=== PATIENT | female | born 1945 | race Caucasian/White ===

== ENCOUNTER 2020-04-11 15:53 | Outpatient (CLI) | payer MEDICARE, OTHER, SELFPAY ==
--- NOTE | ~2020-04-11 | CT_ITS ---
EXAMINATION: CTA chest PE protocol DATE: 04/11/2020 17:27 INDICATION: Shortness of breath TECHNIQUE: Computed tomography (CT) pulmonary angiogram of the chest was performed with 100 mL Omnipa que-350 intravenous contrast. Additional 3D reconstructions utilizing coronal maximum intensity proje ction (MIP) were performed. The dose-length product was 328.41 mGy-cm. COMPARISON: None FINDINGS: Excellent contrast opacification of the pulmonary arteries. There is moderate streak artifact from de nse contrast in the superior vena cava and right atrium. Severe motion artifact which significantly d ecreases sensitivity in the left mid and lower lung zones. Less severe motion artifact scattered thro ughout the remainder of the lungs which only minimally decreases sensitivity. No definite pulmonary e mbolism. Mild elevation of the right hemidiaphragm with mild right basilar atelectasis. Discoid atele ctasis in the left upper lobe and lingula. Mosaic attenuation with groundglass opacities in the depen dent aspect of the lower lobes which could represent atelectasis or mild pulmonary edema. Calcified r ight lower lobe nodule along with calcified right hilar and mediastinal lymph nodes consistent with o ld granulomatous disease. 4 mm left upper lobe pulmonary nodule with suggestion of a tiny central pun ctate calcification also likely sequela of old granulomatous disease. Mild cardiomegaly. No pericardi al effusion. Coronary artery disease and changes of prior coronary artery bypass grafting. Aneurysmal ascending thoracic aorta measuring up to 4.0 x 4.2 cm. No dissection. Enlargement of the central pul monary arteries consistent with pulmonary arterial hypertension. Moderate-sized sliding-type hiatal h ernia. Cholelithiasis without significant gallbladder wall thickening or pericholecystic inflammatory change to suggest acute cholecystitis. Upper thoracic levocurvature with moderate spondylosis. IMPRESSION: 1. No pulmonary embolism. Sensitivity significantly decreased in the segmental and subsegmental pulmo nary arteries of the left mid and lower lung zones due to prominent motion artifact. 2. Groundglass opacities in the bilateral lower lobes with mosaic attenuation which could represent a telectasis or mild pulmonary edema. 3. Cardiomegaly. 4. Mildly aneurysmal ascending thoracic aorta measuring up to 4.2 cm maximal diameter. 5. Enlargement of the central pulmonary arteries consistent with pulmonary arterial hypertension. 6. Moderate-sized sliding-type hiatal hernia. 7. Cholelithiasis. Reviewed, dictated and finalized at location A. MASTERS MANAGER IMPRESSION: 1. No pulmonary embolism. Sensitivity significantly decreased in the segmental and subsegmental pulmonary arteries of the left mid and lower lung zones due to prominent motion artifact. 2. Groundglass opacities in the bilateral lower lobes with mosaic attenuation w hich could represent atelectasis or mild pulmonary edema. 3. Cardiomegaly. 4. Mildly aneurysmal ascending thoracic aorta measuring up to 4.2 cm maximal di ameter. 5. Enlargement of the central pulmonary arteries consistent with pulmonary genna rial hypertension. 6. Moderate-sized sliding-type hiatal hernia. 7. Cholelithiasis.
--- NOTE | ~2020-04-11 | XR_ITS ---
EXAMINATION: XR chest 2V DATE: 04/11/2020 16:17 INDICATION: Chest pain and shortness of breath. TECHNIQUE: Frontal and lateral views of the chest were obtained. COMPARISON: Chest 2 views 07/09/17 FINDINGS: There is mild atelectasis at the lung bases. No pleural effusion or pneumothorax. The heart size is normal. Median sternotomy wires and mediastinal surgical clips are seen, likely from prior c oronary artery bypass grafting. There is a moderate-sized hiatal hernia. IMPRESSION: 1. Mild atelectasis at the lung bases. 2. Moderate-sized hiatal hernia. Reviewed, dictated and finalized at location A. KHOLDER
[2020-04-11 16:10] LABS: Basophils Absolute Auto 0.03 K/mm3 (0.00-0.10); Basophils Percent Auto 0.4 % (0.0-1.0); Eosinophils Absolute Auto 0.04 K/mm3 (0.02-0.50); Eosinophils Percent Auto 0.5 % (1.0-6.0); Hemoglobin 13.7 g/dL (11.7-13.8); Immature Granulocyte Absolute 0.01 K/mm3 (0.00-0.00); Immature Granulocyte Percent A 0.1 % (0.0-0.0); Lymphocytes Absolute Auto 1.39 K/mm3 (1.10-4.50); Lymphocytes Percent Auto 18.4 % (18.0-42.0); Mean Corpuscular HGB Conc 34.3 g/dL (32.0-36.0); Mean Corpuscular Hemoglobin 32.5 pg (27.0-31.0); Mean Platelet Volume 9.6 fl (9.2-11.8); Monocytes Absolute Auto 0.66 K/mm3 (0.10-0.90); Monocytes Percent Auto 8.8 % (2.0-11.0); Neutrophils Absolute Auto 5.4 K/mm3 (1.7-7.2); Neutrophils Percent Auto 71.8 % (50.0-70.0); Platelet Count Result 295 K/mm3 (150-420); Red Blood Count 4.21 M/mm3 (4.20-5.40); Red Cell Distribution Width 12.1 % (11.6-14.4); White Blood Count 7.5 K/mm3 (4.8-10.8)
[2020-04-11 16:28] LABS: D Dimer 0.53 mg/L (0.19-0.50)
[2020-04-11 16:30] LABS: BNP 82.7 pg/mL (0-100)
[2020-04-11 16:36] LABS: Alanine Aminotransferase 31 U/L (14-59); Albumin Level 4.2 g/dL (3.4-5.0); Alkaline Phosphatase 90 U/L (46-116); Anion Gap 7 mmol/L (8-16); Aspartate Amino Transferase 23 U/L (15-37); Bilirubin,Total 1.2 mg/dL (0.00-1.00); Blood Urea Nitrogen 29 mg/dL (7-18); Carbon Dioxide 30 mmol/L (21-32); Chloride 100 mmol/L (98-108); Creatine Kinase 88 U/L (26-192); Estimated Glomerular Filt Rate > 60; Glucose 133 mg/dL (70-99); Osmolality Calculated 291 mOsm/kg (285-295); Potassium 3.9 mmol/L (3.5-5.1); Sodium 137 mmol/L (136-145); Total Protein 8.3 g/dL (6.4-8.2); Troponin I 16.7 ng/L (0.00-60.4)
== END 2020-04-11 15:54 | disposition home or self-care (01) ==
PROVIDERS: PCP Internal Medicine; Visit Provider Nurse Practitioner Family
DX: R07.9 Chest pain, unspecified (principal); R06.02 Shortness of breath; I50.9 Heart failure, unspecified
CPT/HCPCS: 36415; 71046; 71275; 80053; 82550; 82553; 83880; 84484; 85025; 85380; Q9967

== ENCOUNTER 2020-04-19 11:54 | Outpatient (CLI) | payer MEDICARE, OTHER, SELFPAY ==
--- NOTE | 2020-04-19 11:59 | ECHO_ITS ---
Patient Info Name: Nicky Kuo Age: 75 years : 1945 Gender: Female Ht: 66 in Wt: 189 lbs BSA: 2.02 m2 HR: 68 bpm BP: 133 / 72 mmHg Heart Rhythm: Sinus Rhythm Technical Quality: Fair Exam Date: 04/19/2020 12:52 PM Exam Location: [facility] Patient Status: Outpatient Admit Date: 04/19/2020 Staff Ordering Physician: Robinson Foster DO Food Service Counter Clerk: Stefani Haque RDCS Attending Provider: Robinson Foster DO Referring Physician: Cristian HOGAN; Exam Type: CA echo dop color flow w con Study Info Indications R07.9 - Chest pain, unspecified Complete two-dimensional, color flow and Doppler transthoracic echocardiogram is performed with contrast to opacify the left ventricle and to improve the deliniation of the left ventricle endocardial borders. Strain analysis performed. History/Risk Factors Hypertension: No Dyslipidemia: Yes Coronary Artery Disease (CAD) Yes Diabetes Mellitus: No Frailty Scale (CSHA): 4: Vulnerable Summary 1. Left ventricular chamber dimension is normal. 2. Definity contrast administered improved wall motion interpretation. 3. Left ventricular systolic function is normal, estimated at 55-60%. 4. There is mildly increased left ventricular wall thickness. 5. Left ventricular septal wall motion is abnormal with septal motion related to bundle branch block. 6. The left ventricular diastolic function is grade I diastolic dysfunction. 7. E/e' 10 is mildly elevated. 8. Global longitudinal strain is abnormal at -13.2%. 9. Left atrial chamber dimension is mildly enlarged. 10. There is trace aortic valve regurgitation. 11. The mitral valve has mildly calcified annulus. 12. There is trace mitral valve regurgitation. 13. There is mild tricuspid valve regurgitation. 14. No pulmonary hypertension, estimated pulmonary arterial systolic pressure is 26 mmHg. 15. Small atheroma in posterior aortic root. Left Ventricle E/e' 10 is mildly elevated. Global longitudinal strain is abnormal at -13.2%. Definity contrast administered improved wall motion interpretation. Left ventricular chamber dimension is normal. Left ventricular systolic function is normal, estimated at 55-60%. There is mildly increased left ventricular wall thickness. Left ventricular septal wall motion is abnormal with septal motion related to bundle branch block. The left ventricular diastolic function is grade I diastolic dysfunction. Right Ventricle Right ventricular chamber dimension is normal. Right ventricular systolic function is normal. Left Atria Left atrial chamber dimension is mildly enlarged. Right Atria Right atrial chamber dimension is normal. Aortic Valve The aortic valve is trileaflet. There is no aortic valve stenosis. There is trace aortic valve regurgitation. Pulmonic Valve There is no pulmonic regurgitation. Mitral Valve The mitral valve has mildly calcified annulus. There is no mitral valve stenosis. There is trace mitral valve regurgitation. Tricuspid Valve There is mild tricuspid valve regurgitation. No pulmonary hypertension, estimated pulmonary arterial systolic pressure is 26 mmHg. Pericardium/Pleural There is no pericardial effusion. Inferior Vena Cava Normal inferior vena cava with >50% collapse upon inspiration consistent with normal right atrial pressure, 5 mmHg. Aorta Small atheroma in posterior aortic root. The aortic root size at the sinus of Valsalva is normal. Left Ventricular
== END 2020-04-19 11:55 | disposition home or self-care (01) ==
LOC: CHSIMG 11:55
PROVIDERS: PCP Internal Medicine; Visit Provider Internal Medicine Cardiovascular Disease
DX: R07.9 Chest pain, unspecified (principal); R06.00 Dyspnea, unspecified
CPT/HCPCS: C8929

== ENCOUNTER 2020-04-22 10:17 | Outpatient (CLI) | payer MEDICARE, OTHER, SELFPAY ==
--- NOTE | 2020-04-22 10:23 | EST_ITS ---
Patient Info Name: Nicky Kuo Age: 75 years : 1945 Gender: Female Ht: 65 in Wt: 186 lbs BSA: 2.00 m2 Exam Date: 04/22/2020 12:10 PM Exam Location: [facility] Patient Status: Outpatient Admit Date: 04/22/2020 Staff Ordering Physician: Robinson Foster DO Attending Provider: Robinson Foster DO Exam Type: CA stress lee w NM History/Risk Factors Hypertension: No Dyslipidemia: Yes Coronary Artery Disease (CAD) Yes Diabetes Mellitus: No Frailty Scale (CSHA): 4: Vulnerable Summary 1. 1. Inconclusive lexiscan stress test for ischemic ST changes by ECG criteria due to baseline LBBB. 2. 2. Stable hemodynamics throughout the test. 3. 3. Nuclear scan to follow and will be reported separately. Please correlate with it. 4. 4. Patient informed of the above results. Protocol: LEXISCAN Stress ECG Details Stage: REST Duration (min): 1 min : 26 sec HR (bpm): 66 SBP (mmHg): 114 DBP (mmHg): 75 Stage: REST Duration (min): 2 min : 0 sec HR (bpm): 67 SBP (mmHg): 114 DBP (mmHg): 75 Stage: REST Duration (min): 6 min : 27 sec HR (bpm): 71 SBP (mmHg): 114 DBP (mmHg): 75 Stage: REST Duration (min): 30 min : 12 sec HR (bpm): 68 SBP (mmHg): 114 DBP (mmHg): 75 Stage: STAGE 1 Duration (min): 0 min : 10 sec HR (bpm): 69 SBP (mmHg): 114 DBP (mmHg): 75 Stage: RECOVERY Duration (min): 0 min : 50 sec HR (bpm): 85 SBP (mmHg): 114 DBP (mmHg): 75 Stage: RECOVERY Duration (min): 1 min : 50 sec HR (bpm): 96 SBP (mmHg): 138 DBP (mmHg): 79 Stage: RECOVERY Duration (min): 2 min : 50 sec HR (bpm): 93 SBP (mmHg): 143 DBP (mmHg): 77 Stage: RECOVERY Duration (min): 3 min : 50 sec HR (bpm): 86 SBP (mmHg): 134 DBP (mmHg): 76 Stage: RECOVERY Duration (min): 4 min : 50 sec HR (bpm): 88 SBP (mmHg): 130 DBP (mmHg): 75 Stage: RECOVERY Duration (min): 5 min : 50 sec HR (bpm): 83 SBP (mmHg): 129 DBP (mmHg): 74 Stage: RECOVERY Duration (min): 6 min : 3 sec HR (bpm): 85 SBP (mmHg): 129 DBP (mmHg): 74 Rest HR: 68 bpm Peak HR: 96 bpm Rest Sys BP: 114 mmHg Peak Sys BP: 143 mmHg Max Pred HR: 146 bpm % Max Pred HR: 66 % Target HR: 124 bpm Max RPP: 13,728 bpm*mmHg Termination Reason: Completed protocol Cardiac Symptoms: None Total Time: 0 min : 10 sec Rest Jasso BP: 75 mmHg Peak Jasso BP: 77 mmHg Total Dose: 0.4 mg Resting ECG Sinus rhythm with LBBB. Stress ECG No ST changes. Arrhythmias None. Report Signatures
== END 2020-04-22 10:18 | disposition home or self-care (01) ==
LOC: CHSIMG 10:19
PROVIDERS: PCP Internal Medicine; Visit Provider Internal Medicine Cardiovascular Disease
DX: R06.00 Dyspnea, unspecified (principal); R07.9 Chest pain, unspecified
CPT/HCPCS: 78452; 93017; A9502; J2785

== ENCOUNTER 2020-04-29 08:53 | Outpatient (CLI) | payer MEDICARE, OTHER, SELFPAY ==
--- NOTE | ~2020-04-29 | CT_ITS ---
EXAMINATION: CT chest high resolution wo wv EXAM DATE: 04/29/2020 10:25 INDICATION: Pulmonary infiltrates atherosclerotic pulmonary infiltrates atherosclerotic, HTN, chest s urg 3yrs ago. TECHNIQUE: Spiral CT of the chest without contrast. HRCT. Axial, coronal and sagittal images were re viewed. Coronal maximum intensity pixel images of chest reviewed. The dose-length product (DLP) for this examination was 167.74 mGy-cm. The exposure was tailored according to patient size (auto mA ex posure control), and iterative reconstruction (ASIR) was used as additional dose reduction technique. Comparison is made to prior examination from 04/11/2020. FINDINGS: No evidence of chronic internal soft tissue lung disease. There is left basilar subsegment al atelectasis. No confluent consolidation. The ascending aorta measures 4.4 cm. The main, central pu lmonary arteries are dilated which can indicate elevated pulmonary arterial pressure, pulmonary arter ial hypertension. There are no pleural or pericardial effusions. Tracheobronchial tree is patent. There is no mediastinal, hilar or axillary lymphadenopathy. There is no pneumothorax. There is cardiomegaly. There are sternotomy wires, and cardiac/coronary surgical changes. Correlate with prio r history. There is moderate sliding gastroesophageal hiatal hernia. Upper abdomen is unremarkable. There is thoracic spondylosis without osteoblastic or osteolytic lesions identified. Mild thoraci c dextroscoliosis. IMPRESSION: 1. Left basilar subsegmental atelectasis. 2. Mild ascending aortic aneurysm. 3. Pulmonary arterial hypertension. 4. Cardiomegaly. 5. Moderate hiatal hernia. Reviewed, dictated and finalized at location B. DESIGN ENGINEER
== END 2020-04-29 08:54 | disposition home or self-care (01) ==
PROVIDERS: PCP Internal Medicine; Visit Provider Internal Medicine
DX: I25.10 Atherosclerotic heart disease of native coronary artery without angina pectoris (principal); R91.8 Other nonspecific abnormal finding of lung field; I10 Essential (primary) hypertension
CPT/HCPCS: 71250; 94060; 94726; 94729

== ENCOUNTER 2021-11-17 12:07 | Outpatient (CLI) | payer MEDICARE, OTHER, SELFPAY ==
--- NOTE | ~2021-11-17 | CT_ITS ---
EXAMINATION: CT diagnostic chest wo con DATE: 11/17/2021 12:26 INDICATION: Aortic aneurysm, dyspnea on intact and TECHNIQUE: Computed tomography (CT) of the chest was performed without intravenous contrast. The dose -length product (DLP) was 139.78 mGy-cm. Automated exposure control and iterative reconstruction tech Talyst were employed. COMPARISON: 04/29/2020 FINDINGS: There is a 4.2 x 3.9 cm fusiform aneurysm of the thoracic aorta measured at the level of th e main pulmonary artery. There is a chronic 5 mm nodule of the left upper lobe. There is mild atelect asis. No pleural effusion or pneumothorax. Cardiomegaly is noted. There are changes of coronary arter y bypass grafting. There is a moderate-sized sliding hiatal hernia. No pathologically enlarged thorac ic lymph nodes are identified. A stone is present in the nondistended gallbladder. Punctate calcifica tions in an otherwise normal spleen likely represent healed granulomatous disease. There is mild thor acic spondylosis. IMPRESSION: 1. Stable fusiform aneurysm of the ascending aorta. 2. Cardiomegaly. Reviewed, dictated and finalized at location B.
== END 2021-11-17 12:08 | disposition home or self-care (01) ==
PROVIDERS: PCP Internal Medicine; Visit Provider Internal Medicine Cardiovascular Disease
DX: I71.9 Aortic aneurysm of unspecified site, without rupture (principal); R06.00 Dyspnea, unspecified
CPT/HCPCS: 71250

== ENCOUNTER 2021-12-25 08:34 | Outpatient (CLI) | payer MEDICARE, OTHER, SELFPAY ==
[2021-12-25 09:20] LABS: Alanine Aminotransferase 19 U/L (14-59); Alkaline Phosphatase 109 U/L (46-116); Anion Gap 7 mmol/L (8-16); Aspartate Amino Transferase 19 U/L (15-37); Bilirubin,Total 1.5 mg/dL (0.00-1.00); Blood Urea Nitrogen 23 mg/dL (7-18); Calcium 9.5 mg/dL (8.5-10.1); Carbon Dioxide 31 mmol/L (21-32); Chloride 99 mmol/L (98-108); Cholesterol 167 mg/dL (0-200); Estimated Glomerular Filt Rate 55; Glucose 137 mg/dL (70-99); HDL Direct 47 mg/dL (40-60); LDL Cholesterol Calculated 100 mg/dL (<130); Magnesium 1.8 mg/dL (1.8-2.4); Osmolality Calculated 289 mOsm/kg (285-295); Potassium 3.7 mmol/L (3.5-5.1); Sodium 137 mmol/L (136-145); Triglycerides 99 mg/dL (0-150)
[2021-12-25 09:28] LABS: Thyroid Stimulating Hormone Reflex 2.67 u/IU/mL (0.36-3.74)
== END 2021-12-25 08:35 | disposition home or self-care (01) ==
LOC: CHSLAB 08:37
PROVIDERS: PCP Internal Medicine; Visit Provider Internal Medicine Cardiovascular Disease
DX: E78.5 Hyperlipidemia, unspecified (principal)
CPT/HCPCS: 36415; 80053; 80061; 83735; 84443

== ENCOUNTER 2022-06-08 12:08 | Outpatient (CLI) | payer MEDICARE, OTHER, SELFPAY ==
--- NOTE | ~2022-06-08 | DEXA_ITS ---
Bone Density Report Name: EL BUENROSTRO Age: 77 Sex: Female Ethnicity: White Date of : 1945 Indication: postmenopausal; screening for osteoporosis; asthma or emphysema; hysterectomy; Referring Provider: Apolinar Rosales Study: Bone densitometry was performed. Exam Date: June 08, 2022 Accession number: [id number] Bone Density: Region BMD T-score Z-score Classification AP Spine(L2, L3, L4) 1.157 0.7 3.3 Normal Femoral Neck (Left) 0.749 -0.9 1.2 Normal Total Hip (Left) 0.766 -1.4 0.4 Osteopenia Femoral Neck (Right) 0.806 -0.4 1.8 Normal Total Hip (Right) 0.852 -0.7 1.1 Normal Femoral Neck Mean 0.778 -0.6 1.5 Normal Total Hip Mean 0.809 -1.1 0.8 Osteopenia World Health Organization criteria for BMD impression classify patients as: Normal (T-score at or above -1.0), Osteopenia (T-score between -1.0 and -2.5), or Osteoporosis (T-score at or below -2.5). 10-year Fracture Risk(1): Major Osteoporotic Fracture 9.7% Hip Fracture 1.5% Reported Risk Factors: [place] (), Neck BMD=0.749, BMI=30.6 (1) FRAX(R) Version 3.08. Fracture probability calculated for an untreated patient. Fracture probability may be lower if the patient has received treatment. Clinical Information Provided by Patient: Has used the following medications: Vitamin D, Calcium Has the following medical conditions: Asthma or Emphysema, Hysterectomy Patient maximum height was 58 Menopause Age: 51 Drinks caffeinated beverages Onset of menses at age 13 Number of children 1 Impression: The patient has low bone mass, based on the Left Total Hip T-score. Discussion: BONE DENSITY IS LOW AT ONE OR MORE SKELETAL SITES. This patient's lowest T-score is low at one or more skeletal sites. It meets the World Health Organization's (WHO) criteria for ?low bone mass? (T-score between -1.0 and -2.5). The patient's 10-year risk of fracture as calculated by FRAX is less than the threshold where pharmacological therapy is recommended by the National Osteoporosis Foundation (NOF). However, all treatment decisions require clinical judgment and consideration of individual patient factors, including patient preferences, comorbidities, previous drug use, risk factors not captured in the FRAX model (e.g., frailty, falls, vitamin D deficiency, increased bone turnover, interval significant decline in bone density) and possible under or overestimation of fracture risk by FRAX. The patient should follow a healthful lifestyle (good nutrition with adequate calcium and vitamin D, and appropriate weight-bearing exercise). Follow-Up: Consider repeating this study in 2 to 3 years to reassess this patient's status, or sooner if there is some new clinical indication. Reported by: Dr. Aron Villeda on 06/08/2022 1:04:00
--- NOTE | ~2022-06-08 | MM_ITS ---
EXAMINATION: MM screening norma BI w hesham HISTORY: Screening mammogram TECHNIQUE: Craniocaudal and mediolateral oblique 3-D tomosynthesis images were obtained and synthetic 2-D images were generated. CAD analysis was submitted and interpreted. COMPARISON: No prior mammogram is available for comparison at this institution. BREAST PARENCHYMAL COMPOSITION: There are scattered areas of fibroglandular density. FINDINGS: There is no evidence of suspicious mass, calcification, or architectural distortion to sugg est malignancy in either breast. There has been no suspicious interval change. IMPRESSION: 1. No mammographic evidence of malignancy. 2. Recommend routine screening mammography in one year. BI-RADS Category 1: Negative Reviewed, dictated and finalized at location A.
== END 2022-06-08 12:09 | disposition home or self-care (01) ==
LOC: CHSIMG 12:09
PROVIDERS: PCP Internal Medicine; Visit Provider Internal Medicine
DX: Z12.31 Encounter for screening mammogram for malignant neoplasm of breast (principal); Z78.0 Asymptomatic menopausal state; M85.89 Other specified disorders of bone density and structure, multiple sites
CPT/HCPCS: 77063; 77067; 77080

== ENCOUNTER 2022-06-25 09:15 | Outpatient (CLI) | payer MEDICARE, OTHER, SELFPAY ==
--- NOTE | ~2022-06-25 | US_ITS ---
EXAMINATION: US carotid duplex BI DATE: 06/25/2022 10:20 INDICATION: Occlusion and stenosis of unspecified carotid artery. TECHNIQUE: Grayscale, color Doppler, and pulsed Doppler images of the cervical carotid arteries were obtained. The degree of vessel stenosis is placed in one of the following categories: normal, <50%, 5 0-69%, >=70% but less than near-occlusion, near-occlusion, or total occlusion. Note that percent sten osis relative to normal distal artery lumen diameter is indirectly measured from velocity measurement s as described by Richard, et al. Radiology 2003; 229:340-346. COMPARISON: Ultrasound 03/03/17 FINDINGS: RIGHT: The right common carotid artery (CCA) peak systolic velocity (PSV) is 87 cm/s. The right internal car otid artery (ICA) PSV is 55 cm/s. The right ICA end-diastolic velocity (EDV) is 14 cm/s. The right IC A/CCA PSV ratio is <1. Grayscale and color Doppler images yield an estimate of <50% diameter reductio n from plaque in the ICA. There is antegrade flow in the right vertebral artery. LEFT: The left CCA PSV is 55 cm/s. The left ICA PSV is 60 cm/s. The left ICA EDV is 28 cm/s. The left ICA/C CA PSV ratio is 1.1. Grayscale and color Doppler images yield an estimate of <50% diameter reduction from plaque in the ICA. There is antegrade flow in the left vertebral artery. IMPRESSION: 1. <50% stenosis in the right internal carotid artery. 2. <50% stenosis in the left internal carotid artery. Reviewed, dictated and finalized at location A.
== END 2022-06-25 09:16 | disposition home or self-care (01) ==
LOC: CHSIMG 09:16
PROVIDERS: PCP Internal Medicine; Visit Provider Internal Medicine Cardiovascular Disease
DX: I65.23 Occlusion and stenosis of bilateral carotid arteries (principal)
CPT/HCPCS: 93880

== ENCOUNTER 2023-04-16 15:43 | Outpatient (CLI) | payer MEDICARE, OTHER, SELFPAY ==
--- NOTE | ~2023-04-16 | XR_ITS ---
XR abdomen obstructive series DATE: 04/16/2023 16:48 INDICATION: Generalized back pain. Nausea, vomiting, constipation. TECHNIQUE: Supine and upright AP views COMPARISON: None FINDINGS: There is an approximately 3 cm concentrically calcified probable gallstone overlying the ri ght upper quadrant of the abdomen. Surgical clips overlie the left upper quadrant. Sternal wire sutures and postoperative change from coronary artery bypass graft surgery. There is rotatory levoscoliosis and multilevel severe degenerative disc disease of the lumbar spine. No bowel obstruction or intraperitoneal free air is detected. No abdominal visceromegaly is noted. Osteopenia. 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 Reviewed, dictated and finalized at location B. L CASINO FLOORPERSON IMPRESSION: Cholelithiasis Rotatory levoscoliosis and multilevel severe degenerative disc disease of the l umbar spine Osteopenia Status post CABG Postoperative change, left upper quadrant
[2023-04-16 16:13] LABS: Basophils Absolute Auto 0.02 K/mm3 (0.00-0.10); Basophils Percent Auto 0.2 % (0.0-1.0); Hematocrit 40.2 % (35.0-42.0); Hemoglobin 13.5 g/dL (11.7-13.8); Immature Granulocyte Absolute 0.05 K/mm3 (0.00-0.00); Immature Granulocyte Percent A 0.4 % (0.0-0.0); Lymphocytes Absolute Auto 0.16 K/mm3 (1.10-4.50); Lymphocytes Percent Auto 1.2 % (18.0-42.0); Mean Corpuscular HGB Conc 33.6 g/dL (32.0-36.0); Mean Corpuscular Volume 92.2 fL (78.0-102.0); Mean Platelet Volume 9.7 fl (9.2-11.8); Monocytes Absolute Auto 0.51 K/mm3 (0.10-0.90); Neutrophils Absolute Auto 12.1 K/mm3 (1.7-7.2); Neutrophils Percent Auto 94.2 % (50.0-70.0); Platelet Count Result 246 K/mm3 (150-420); Red Blood Count 4.36 M/mm3 (4.20-5.40); White Blood Count 12.9 K/mm3 (4.8-10.8)
[2023-04-16 16:52] LABS: Alanine Aminotransferase 27 U/L (14-59); Albumin Level 3.4 g/dL (3.4-5.0); Alkaline Phosphatase 105 U/L (46-116); Amylase 22 U/L (25-115); Anion Gap 16 mmol/L (8-16); Aspartate Amino Transferase 25 U/L (15-37); Bilirubin,Total 1.8 mg/dL (0.00-1.00); Blood Urea Nitrogen 29 mg/dL (7-18); CRP 5.1 mg/dL (0.0-0.9); Calcium 8.7 mg/dL (8.5-10.1); Carbon Dioxide 24 mmol/L (21-32); Chloride 95 mmol/L (98-108); Creatine Kinase 38 U/L (26-192); Creatine Kinase MB < 0.50 ng/mL (0.00-5.00); Estimated Glomerular Filt Rate 36; Glucose 233 mg/dL (70-99); Lipase 25 U/L (16-77); Osmolality Calculated 292 mOsm/kg (285-295); Potassium 3.2 mmol/L (3.5-5.1); Sodium 135 mmol/L (136-145); Troponin I 12.8 ng/L (0.00-60.4)
== END 2023-04-16 15:44 | disposition home or self-care (01) ==
LOC: CHSLAB 15:47
PROVIDERS: PCP Internal Medicine; Visit Provider Internal Medicine
DX: M54.50 Low back pain, unspecified (principal); R11.2 Nausea with vomiting, unspecified; K80.20 Calculus of gallbladder without cholecystitis without obstruction; M41.86 Other forms of scoliosis, lumbar region; M51.36 Other intervertebral disc degeneration, lumbar region; M85.88 Other specified disorders of bone density and structure, other site; Z95.1 Presence of aortocoronary bypass graft; Z98.890 Other specified postprocedural states
CPT/HCPCS: 36415; 74019; 80053; 82150; 82550; 82553; 83690; 84484; 85025; 86140

== ENCOUNTER 2023-04-16 22:04 | Inpatient (IN) | payer MEDICARE, OTHER, SELFPAY ==
[2023-04-16] VITALS (18 sets, daily range): BP systolic 57–77; BP diastolic 39–53; PULSE 73–119; RESP 18–34; TEMP 36.8; O2SAT 90–95
--- NOTE | ~2023-04-16 | XR_ITS ---
Portable chest x-ray Comparison: 04/18/2023 Clinical History: Dyspnea Findings: Suspected minimal pleural effusions with bibasilar pulmonary edema/atelectatic change. Rig ht IJ line is unchanged. Cardiomediastinal silhouette is stable. Bones and soft tissues are unremark able. Impression: Probable mild bibasilar pulmonary edema/atelectasis and minimal pleural effusions. Stable right IJ line. Reviewed, dictated and finalized at location . D LABORER Impression: Probable mild bibasilar pulmonary edema/atelectasis and minimal pleural effusio ns. Stable right IJ line.
--- NOTE | ~2023-04-16 | CT_ITS ---
EXAMINATION: CT abdomen pelvis wo con DATE: 04/19/2023 14:29 INDICATION: Pyelitis. Stent placement. TECHNIQUE: Computed tomography (CT) of the abdomen and pelvis was performed without intravenous contr ast. The dose-length product was 484.78 mGy-cm. Automated exposure control and iterative reconstructi on technique were employed. COMPARISON: CT dated 04/16/2023. FINDINGS: There is a right internal ureteral stent. There is dilated right renal pelvis containing de bris and stones. Cannot exclude transitional cell carcinoma or blood clot. Gallstones with dilated ga llbladder. Cannot exclude cholecystitis. Small pleural effusions. There is bilateral lower lobe conso lidation. Hiatal hernia. There is ascites. There is atherosclerosis of the aorta without aneurysm. There are calcified granulomas of the spleen. There is a right internal ureteral stent present which is new compared with prior CT. Severe lumbar spondylosis with levoscoliosis. IMPRESSION: 1. Debris and stones in the right renal pelvis which is dilated. Cannot exclude superimposed blood cl ot or tumor. Right internal ureteral stent in expected position. 2: Dilated gallbladder with gallstones. Consider cholecystitis in the appropriate clinical setting. 3: Small pleural effusions with underlying airspace consolidation of the lower lobes which may repre sent atelectasis or pneumonia. Reviewed, dictated and finalized at location B. OR MEDICAL TECHNOLOGIST IMPRESSION: 1. Debris and stones in the right renal pelvis which is dilated. Cannot exclude superimposed blood clot or tumor. Right internal ureteral stent in expected po sition. 2: Dilated gallbladder with gallstones. Consider cholecystitis in the appropria te clinical setting. 3: Small pleural effusions with underlying airspace consolidation of the lower lobes which may represent atelectasis or pneumonia.
--- NOTE | ~2023-04-16 | XR_ITS ---
XR chest 1V portable DATE: 04/17/2023 04:28 INDICATION: Hypoxia TECHNIQUE: Portable upright AP chest on 04/17/2023 at 0420 hours COMPARISON: 04/17/2023 portable AP chest at 0125 hours FINDINGS: Right internal jugular central venous catheter is again noted, the distal tip overlying the right atrium. Status post sternotomy and CABG. Cardiac megaly. Aortic calcification. There is moderately prominent elevation of the right leaf of diaphragm. There is infiltrate or atelec tasis in both lower lung zones. No pleural effusion or pulmonary vascular congestion or pneumothorax is detected. Osteopenia. Dextroscoliosis of the thoracic spine. 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 IMPRESSION: Right internal jugular central venous catheter tip overlies right atrium Mild infiltrate or atelectasis at the lung bases No significant change since 0125 hours today Reviewed, dictated and finalized at location A. HANDLING EQUIPMENT OPERATOR IMPRESSION: Right internal jugular central venous catheter tip overlies right a trium Mild infiltrate or atelectasis at the lung bases No significant change since 0125 hours today
--- NOTE | ~2023-04-16 | XR_ITS ---
XR chest 1V portable DATE: 04/18/2023 10:53 INDICATION: Sepsis TECHNIQUE: Portable upright AP chest on 04/18/2023 at 1048 hours COMPARISON: 04/17/2023 portable AP chest FINDINGS: Right internal jugular central venous line tip overlies right atrium. Status post sternotomy and coronary artery bypass graft surgery. Cardiomegaly. Aortic calcification. Persistent predominantly bilateral basilar infiltrate and/atelectasis. Moderate elevation of right di aphragm. Diffuse osteopenia. Surgical clips overlie the left upper quadrant of the abdomen. IMPRESSION: Prominent bibasilar infiltrate and/atelectasis and moderate elevation right diaphragm No significant change since 04/17/2023 Reviewed, dictated and finalized at location A. DING OPERATOR IMPRESSION: Prominent bibasilar infiltrate and/atelectasis and moderate elevati on right diaphragm No significant change since 04/17/2023
--- NOTE | ~2023-04-16 | XR_ITS ---
XR chest port-a-cath/central DATE: 04/17/2023 01:30 INDICATION: Central line placement TECHNIQUE: Portable AP chest on 04/17/2023 at 0125 hours COMPARISON: 04/16/2023 CTA chest abdomen pelvis FINDINGS: Cardiomegaly. Aortic calcification. Status post sternotomy and coronary artery bypass graft surgery. There is moderate elevation right leaf of the diaphragm. There is mild infiltrate or atelectasis in t he lower lung zones. No pleural effusion or pulmonary vascular congestion or pneumothorax is detected . Right internal jugular central venous catheter tip overlies the right atrium. Moderate hiatal hernia. Osteopenia. IMPRESSION: Right internal jugular central venous catheter tip overlies right atrium Status post sternotomy and CABG Cardiomegaly, aortic atherosclerosis Moderate elevation of right diaphragm Mild infiltrate or atelectasis at the lower lung zones Reviewed, dictated and finalized at Location A. Reviewed, dictated and finalized at location A. DRILL OPERATOR IMPRESSION: Right internal jugular central venous catheter tip overlies right a trium Status post sternotomy and CABG Cardiomegaly, aortic atherosclerosis Moderate elevation of right diaphragm Mild infiltrate or atelectasis at the lower lung zones
--- NOTE | ~2023-04-16 | US_ITS ---
EXAMINATION: US right upper quadrant DATE: 04/20/2023 18:30 INDICATION: Gallbladder distention. TECHNIQUE: Multiple grayscale and Doppler ultrasound images of the abdomen were obtained. COMPARISON: CT abdomen and pelvis 04/19/2023 FINDINGS: The visualized portions of the head of the pancreas are normal. The liver is normal without focal lesion. There is normal flow in main portal vein. There is a large gallstone in the gallbladde r, which is normal in size. No gallbladder wall thickening or sonographic Farrell sign. The common kaitlynn t is normal and measures 4 mm. IMPRESSION: 1. Cholelithiasis. No evidence of acute cholecystitis. Reviewed, dictated and finalized at location E. ANALYTICS ARCHITECT
--- NOTE | ~2023-04-16 | XR_ITS ---
XR retrograde pyelo w/stent RT DATE: 04/17/2023 02:02 INDICATION: Right internal urinary stent placement. Multiple right renal pelvic stones. TECHNIQUE: 12 spot C-arm images of abdomen. 41.9 seconds fluoroscopy time 11.16 mGy COMPARISON: 04/16/2023 CTA chest abdomen pelvis FINDINGS: Retrograde right pyelogram reveals multiple filling defects of the right renal pelvis consi stent with the numerous stones demonstrated in the right renal pelvis on 04/16/2023 CT examination. There is placement of a right internal urinary stent, proximal pigtail overlying the right renal pelv is. IMPRESSION: Multiple right renal pelvic stones Placement of right internal urinary stent Reviewed, dictated and finalized at Location A. Reviewed, dictated and finalized at location A. CARGO SPECIALIST
--- NOTE | ~2023-04-16 | CT_ITS ---
EXAMINATION: CTA chest abdomen pelvis DATE: 04/16/2023 22:46 INDICATION: Back pain and hypotension TECHNIQUE: Computed tomographic angiography (CTA) of the chest, abdomen, and pelvis was performed wit hout and with 100 mL Omnipque-350 intravenous contrast. Maximum intensity projection 3D-reconstructio ns of the aorta and other arteries were constructed by the technologist on a separate workstation. Th e dose-length product (DLP) was 687.93 mGy-cm. Automated exposure control and iterative reconstructio n technique were employed. COMPARISON: 11/17/2021, 04/11/2020 FINDINGS: CHEST CTA: No aneurysm or dissection of the thoracic aorta. There is enlargement of the main and central pulmona ry arteries, consistent with pulmonary hypertension. There are changes of coronary artery bypass tatyana ting. The heart size is normal. Calcified pulmonary nodules and calcified right hilar and mediastinal lymph nodes are consistent with old granulomatous disease. There is mild dependent atelectasis of th e lungs. There is a large sliding hiatal hernia. No pleural effusion or pneumothorax. There is modera te thoracic spondylosis. ABDOMEN AND PELVIS CTA: No aneurysm or dissection of the abdominal aorta. The celiac axis, superior mesenteric artery, and in ferior mesenteric artery are normal at their origins. There are single renal arteries. There is calci fied atherosclerosis without hemodynamically significant stenosis. The liver is diffusely low in atte nuation when compared with the spleen, consistent with hepatic steatosis. A stone is present in the n ondistended gallbladder. The spleen, pancreas, and adrenal glands are normal. The left kidney is unre markable. There are stones and gas in the right renal pelvis and calyces of the right kidney. There i s mildly decreased perfusion of the right kidney compared to the left. No pathologically enlarged abd ominal or pelvic lymph nodes are identified. No free intraperitoneal gas or evidence of bowel obstruc tion. There is severe lumbar spondylosis. IMPRESSION: 1. No aneurysm or dissection of the aorta. 2. Emphysematous pyelitis of the right kidney. 3. Findings suggestive of pyelonephritis of the right kidney. 4. Multiple relatively radiolucent stones in the right renal pelvis. Reviewed, dictated and finalized at location F. UNTS COLLECTOR
--- NOTE | 2023-04-16 22:33 | ED.GENADULT ---
HPI - General Adult General Chief complaint: Unspecified Stated complaint: pt shaking when i go to sleep Time Seen by Provider: 04/16/23 22:20 Source: patient Limitations: no limitations History of Present Illness HPI narrative: Patient is a 78-year-old female presents to the emergency department for back pain and overall not feeling well. Patient is the back pain started earlier today, in the middle of her back with denies history is in the past, denies any injuries. Patient admits to seeing her doctor today and was told she might have something a the gallbladder. Patient denies use of blood thinners. Patient denies diarrhea, melena, hematochezia, chest pain, difficulty breathing, numbness, weakness. Patient does admit to some generalized fatigue. Patient also admits to recent constipation however she was able to have a bowel movement this morning and is no longer feeling constipated. Related Data Home Medications Medication Instructions Recorded Confirmed aspirin 81 mg tablet,delayed 81 mg PO DAILY 06/08/19 12/21/22 release (Adult Aspirin Regimen) atorvastatin 40 mg tablet 40 mg PO DAILY 06/08/19 12/21/22 Allergies Allergy/AdvReac Type Severity Reaction Status Date / Time No Known Allergies Allergy Verified 04/16/23 22:06 Review of Systems Review of Systems: A 10 system review of systems was completed on the patient and is negative except for what is stated in the HPI. Nursing and ancillary documentation was reviewed. [facility] Past Medical History Medical History Ascending aortic aneurysm CAD (coronary artery disease) Carotid stenosis Diaphragm dysfunction Dyslipidemia Hypertension LBBB (left bundle branch block) Obesity Sepsis Surgical History Surgical History H/O hernia repair H/O: hysterectomy History of surgical removal of skin lesion S/P CABG x 4 Social History Social History Smoking status: Former smoker Comments At time of signature, I have reviewed and agree with nursing past medical, surgical, social and family history unless otherwise noted. Please see the nursing chart for further information. There is no relevant family history pertinent to the presenting complaint. Exam Narrative: CONST: No acute distress. On two liters of supplemental oxygen via nasal cannula. HENMT: Head is normocephalic and atraumatic. Dry mucous membranes. No posterior oropharynx erythema. EYES: No conjunctival icterus, injection, or pallor. PERRL. NECK: No meningeal signs. RESP: Able to speak in full sentences. Tachypnea. CTAB. CARDIO: tachycardic rate. Regular rhythm. 1+ DP and radial pulses bilaterally. GI: Nondistended. No tenderness to palpation. Soft. : No CVA tenderness to palpation. SKIN: No rashes or lesions noted on exposed skin. NEURO: Oriented x3. Moves all extremities. No focal neurological deficits. EXTREM/MSK/BACK: No pedal edema. PSYCH: Normal affect. Course Vital Signs Vital signs: Vital Signs Temperature 98.3 F 04/16/23 22:07 Pulse Rate 73 04/16/23 22:07 Respiratory Rate 20 04/16/23 22:07 Blood Pressure 71/40 L 04/16/23 22:07 Pulse Oximetry 91 04/16/23 22:07 Oxygen Delivery Room Air 04/16/23 22:07 Temperature 98.3 F 04/16/23 22:07 Pulse Rate 102 H 04/17/23 01:22 Respiratory Rate 27 H 04/17/23 01:16 Blood Pressure 84/55 L 04/17/23 01:33 Pulse Oximetry 100 04/17/23 01:16 Oxygen Delivery Nasal Cannula 04/16/23 22:25 Oxygen Flow Rate 2 04/16/23 22:25 Procedures Central Line Placement Right IJ: Central Line Date: 04/17/23 Central Line Time: 01:10 Discussed w/ the patient/family/POA,the placement of a central venous catheter, including its clinical necessity/indication & associated potential risks, benifits and alternatives.: [place]ion
--- NOTE | 2023-04-16 22:37 | ECG_ITS ---
Measurements Intervals [place] Rate: 113 P: -66 KS: 124 QRS: -74 QRSD: 162 T: 97 QT: 371 QTc: 511 Interpretive Statements SINUS OR ECTOPIC ATRIAL TACHYCARDIA LEFT AXIS DEVIATION LEFT BUNDLE BRANCH BLOCK BASELINE ARTIFACT- I ABNORMAL ECG NO PREVIOUS ECG AVAILABLE FOR COMPARISON Electronically Signed On 04-17-2023 8:16:04 EGG FACTORY WORKER by Robinson Foster D.O.
[2023-04-16 23:12] LABS: Basophils Percent Auto 0.3 % (0.2-1.2); Eosinophils Percent Auto 0.1 % (0-4.4); Hematocrit 34.4 % (37.0-47.0); Hemoglobin 11.3 g/dL (12.0-15.0); Immature Granulocyte Absolute 0.06 K/mm3 (0.00-0.031); Immature Granulocyte Percent A 0.6 % (0-0.5); Lymphocytes Absolute Auto 0.12 K/mm3 (0.9-3.2); Lymphocytes Percent Auto 1.2 % (18.3-44.2); Mean Corpuscular HGB Conc 32.8 g/dl (32-36); Mean Corpuscular Hemoglobin 31.2 pg (26-34); Mean Platelet Volume 10.4 fl (7.4-10.4); Monocytes Absolute Auto 0.2 K/mm3 (0.1-0.6); Monocytes Percent Auto 1.9 % (2.6-8.5); Neutrophils Absolute Auto 9.7 K/mm3 (1.3-6.7); Neutrophils Percent Auto 95.9 % (45.5-73.1); Platelet Count Result 203 k/mm3 (150-375); Red Blood Count 3.62 M/mm3 (4.2-5.4); Red Cell Distribution Width 12.2 % (11.5-14.5); White Blood Count 10.1 K/mm3 (4.5-10.0)
[2023-04-16] MEDS: SODIUM CHLORIDE 0.9% IV 2,300 ML/1,000 ML BAG 999 ML IV CONT (23:13)
[2023-04-16 23:23] LABS: INR 1.2; Prothrombin Time 15.5 Seconds (11.1-14.7)
[2023-04-16 23:24] LABS: Alanine Aminotransferase 40 U/L (6-35); Alkaline Phosphatase 93 U/L (38-126); Anion Gap 12 mmol/L (8-16); Aspartate Amino Transferase 42 U/L (14-36); Bilirubin,Total 1.8 mg/dL (0.2-1.3); Blood Urea Nitrogen 32 mg/dL (7-17); Calcium 8.1 mg/dL (8.4-10.2); Carbon Dioxide 24 mmol/L (22-30); Chloride 96 mmol/L (98-107); Estimated CRCL calculation 28 ml/min; Estimated Glomerular Filt Rate 31; Glucose 181 mg/dL (65-110); Lipase 38 U/L (23-300); Magnesium 1.6 mg/dL (1.6-2.3); Sodium 132 mmol/L (137-145)
[2023-04-16 23:24] LABS: Partial Thromboplastin Time 31.2 SECONDS (22.3-36.8)
[2023-04-16 23:29] LABS: D Dimer 3.37 ug/mL (<0.48)
[2023-04-16 23:29] LABS: Appearance Urine Cloudy (Clear); Bacteria Urine 1+ /hpf; Bilirubin Urine 2+ (Negative); Blood Urine 3+ (Negative); CRP 6.6 mg/dL (<1.0); Color Urine Dark Yellow (Yellow); Glucose Urine UA Negative (Negative); Ketones Urine Trace mg/dL (Negative); Leukocyte Esterase Ur 2+ LEU/UL (Negative); Need Manual Microscopic Reviewed; Nitrate Urine Positive (Negative); Protein Urine 1+ mg/dL (Negative); Specific Grav Ur 1.029 (1.001-1.035); Squamous Epithelial Cell Urine Occasional /hpf (Few); WBC Urine >100 /hpf
[2023-04-16 23:30] LABS: Add Urine Microscopic? YES
[2023-04-16 23:35] LABS: Troponin I 0.033 ng/mL (0.000-0.034)
[2023-04-16 23:38] LABS: Lactic Acid Reflex 4.3 mmol/L (0.7-2.0)
[2023-04-17] VITALS (141 sets, daily range): BP systolic 62–158; BP diastolic 39–115; PULSE 81–126; RESP 18–39; TEMP 36.2–37.6; O2SAT 90–100; BMI 26.4
--- NOTE | 2023-04-17 | ECHO_ITS ---
Patient Info Name: Nicky Kuo Age: 78 years : 1945 Gender: Female Ht: 62 in Wt: 165 lbs BSA: 1.84 m2 HR: 55 bpm BP: 119 / 58 mmHg Heart Rhythm: Sinus Rhythm Technical Quality: Good Exam Date: 04/17/2023 9:47 AM Exam Location: Echo Lab Patient Status: Inpatient Admit Date: 04/17/2023 Staff Ordering Physician: Aixa Haskins DO Inspector Printed Circuit Boards: Valeriy Harmon RDCS Attending Provider: Aixa Haskins DO Referring Physician: Divine BOBO; Exam Type: CA echo doppler color flow Study Info Indications - pulmonary edema, hypoxia Complete two-dimensional, color flow and Doppler transthoracic echocardiogram is performed. History/Risk Factors Hypertension: No Dyslipidemia: Yes Coronary Artery Disease (CAD) Yes Diabetes Mellitus: No Frailty Scale (CSHA): 4: Vulnerable Summary 1. Complete two-dimensional, color flow and Doppler transthoracic echocardiogram is performed. 2. Normal left ventricular size overall preserved systolic function and grade 1 diastolic noncompliance. 3. Abnormal septal motion appears to be the result of bundle branch block. 4. Modest amount of mitral and tricuspid regurgitation. Left Ventricle Left ventricular chamber dimension is normal. Left ventricular systolic function is normal, estimated at 55-60%. Left ventricular septal wall motion is abnormal with septal motion related to bundle branch block. The left ventricular diastolic function is grade I diastolic dysfunction. Right Ventricle Right ventricular chamber dimension is normal. Left Atria Left atrial chamber dimension is normal. Right Atria Right atrial chamber dimension is mildly enlarged. Aortic Valve The aortic valve is normal. Pulmonic Valve The pulmonic valve is normal. Mitral Valve The mitral valve has normal leaflets. There is mild mitral valve regurgitation. Tricuspid Valve The tricuspid valve leaflets are normal. Pericardium/Pleural The pericardium appears normal. Aorta The aortic root size at the sinus of Valsalva is normal. Left Ventricular Outflow Tract Name Value Normal LVOT 2D LVOT Diameter 1.8 cm LVOT Doppler LVOT Peak Gradient 4 mmHg LVOT Mean Gradient 3 mmHg LVOT VTI 15 cm LVOT VTI/AV VTI Ratio 0.7 LVOT Stroke Volume 37 ml LVOT CO 3.3 l/min LVOT CI 1.8 l/min/m2 Pulmonic Valve Name Value Normal RVOT Doppler RVOT Peak Gradient 1 mmHg PV Doppler PV Peak Gradient 6 mmHg Mitral Valve Name Value Normal
--- NOTE | 2023-04-17 | WPDANESEPP ---
Anes - Eval Pre Procedure Procedure: Cystoscopy with stent placement Date/Time: 04/17/23 00:00 Surgeon: Sruthi Preop Diagnosis: Obstucting stone, urosepsis Pre Op Diagnosis: urosepsis Patient Data Age: 78 Gender: F Height: 1.68 m Weight: 77.27 kg Last Vital Signs Temp 98.3 F 04/16/23 22:07 Pulse 114 H 04/16/23 22:22 Resp 24 H 04/16/23 22:22 BP 77/50 L 04/16/23 22:22 Pulse Ox 94 04/16/23 22:25 O2 Del Method Nasal Cannula 04/16/23 22:25 O2 Flow Rate 2 04/16/23 22:25 Allergies Allergy/AdvReac Type Severity Reaction Status Date / Time No Known Allergies Allergy Verified 04/16/23 22:06 Home Medications Medication Instructions Recorded Confirmed Type aspirin 81 mg tablet,delayed 81 mg PO DAILY 06/08/19 12/21/22 History release (Adult Aspirin Regimen) atorvastatin 40 mg tablet 40 mg PO DAILY 06/08/19 12/21/22 History spironolactone 25 1 tablet PO DAILY #30 tabs 06/12/19 12/21/22 Rx mg-hydrochlorothiazide 25 mg tablet metoprolol succinate 25 mg See Rx Instructions .Route 10/23/22 12/21/22 Rx tablet,extended release 24 hr .COMPLEX #90 tabs Laboratory Tests 04/16/23 04/16/23 04/16/23 23:01 23:02 23:04 WBC 10.1 H K/mm3 (4.5-10.0) RBC 3.62 L M/mm3 (4.2-5.4) Hgb 11.3 L g/dL (12.0-15.0) Hct 34.4 L % (37.0-47.0) MCV 95.0 fl (80-100) MCH 31.2 pg (26-34) MCHC 32.8 g/dl (32-36) RDW 12.2 % (11.5-14.5) Plt Count 203 k/mm3 (150-375) MPV 10.4 fl (7.4-10.4) Immature Gran % (Auto) 0.6 H % (0-0.5) Neut % (Auto) 95.9 H % (45.5-73.1) Lymph % (Auto) 1.2 L % (18.3-44.2) [place] % (Auto) 1.9 L % (2.6-8.5) Eos % (Auto) 0.1 % (0-4.4) Baso % (Auto) 0.3 % (0.2-1.2) Lymph # (Auto) 0.12 L K/mm3 (0.9-3.2) [place] # (Auto) 0.2 K/mm3 (0.1-0.6) Eos # (Auto) 0.0 K/mm3 (0-0.3) Baso # (Auto) 0.0 K/mm3 (0.0-0.1) Abs Immat Gran (auto) 0.06 H K/mm3 (0.00-0.031) Absolute Neuts (auto) 9.7 H K/mm3 (1.3-6.7) Absolute Nucleated RBC 0.0 K/mm3 (0.0-0.012) Nucleated RBC % 0.0 % (0.0-0.2) PT 15.5 H Seconds (11.1-14.7) INR 1.2 APTT 31.2 SECONDS (22.3-36.8) D-Dimer 3.37 H ug/mL (<0.48) Sodium 132 L mmol/L (137-145) Potassium 3.0 L mmol/L (3.4-5.0) Chloride 96 L mmol/L (98-107) Carbon Dioxide 24 mmol/L (22-30) Anion Gap 12 mmol/L (8-16) BUN 32 H mg/dL (7-17) Creatinine 1.60 H mg/dL (0.7-1.0) Estim Creat Clear Calc 28 ml/min Estimated GFR 31 L (59 - ) Glucose 181 H mg/dL (65-110) Lactic Acid 4.3 H* mmol/L (0.7-2.0) Calcium 8.1 L mg/dL (8.4-10.2) Magnesium 1.6 mg/dL (1.6-2.3) Total Bilirubin 1.8 H mg/dL (0.2-1.3) AST 42 H U/L (14-36) ALT 40 H U/L (6-35) Alkaline Phosphatase 93 U/L (38-126) Troponin I Pending 0.033 ng/mL (0.000-0.034) C-Reactive Protein 6.6 H mg/dL (<1.0) Total Protein 6.0 L g/dL (6.3-8.2) Albumin 3.0 L g/dL (3.5-5.1) Lipase 38 U/L (23-300) TSH (Reflex) 2.740 uIU/mL (0.465-4.68) Urine Color Dark yellow (Yellow) Urine Appearance Cloudy H (Clear) Urine pH 5.0 (5.0-9.0) Ur Specific [place] 1.029 (1.001-1.035) Urine Protein 1+ H mg/dL (Negative) Urine Glucose (UA) Negative mg/dL (Negative) Urine Ketones Trace H mg/dL (Negative) Ur Blood (Man) 3+ H (Negative) Urine Nitrate Positive H (Negative) Urine Bilirubin 2+ H (Negative) Urine Urobilinogen 2.0 H mg/dL (<2.0) Add Ur Microan
[2023-04-17] MEDS: MEROPENEM 1 GM/NS 100 ML 1 GM/100 ML BAG IVPB ×2 (00:21→11:52)
[2023-04-17] MEDS: KCL 20 MEQ/SW 100 ML 100 ML 50 MEQ IVPB (00:24)
--- NOTE | 2023-04-17 00:43 | WPDURCON ---
Assessment and Plan Assessment and plan (1) Hydronephrosis: Code(s): N13.30 - Unspecified hydronephrosis Status: Acute Assessment and Plan: right hydronephrosis and gas in collecting system UTI needs right stent and possible perc tube (2) Sepsis associated hypotension: Code(s): A41.9 - Sepsis, unspecified organism; I95.9 - Hypotension, unspecified Status: Acute Assessment and Plan: will place right stent may need perc IV antibiotics resuscitation Urology Consult Note HPI Date Seen: 04/17/23 Requesting Physician: ER doctor Primary Care Provider: Apolinar Rosales MD Consult Narrative Narrative: Nicky Kuo is a 78 year old female with right hydronephrosis and small stones and gas in upper collecting system. UA pos and she in hypotensive. Review of Systems Review of Systems: Ill feeling and fevers. Now with hypostension and UA with infection. She has gas in the collecting system. Constitutional: Comments: awake and alert ENT: Comments: normal Gastrointestinal: Comments: non distended Genitourinary: Comments: right side --mild pain PMFSH Past Medical History Medical History (Updated 04/17/23 @ 00:52 by Luis Alfredo Negro MD) Ascending aortic aneurysm CAD (coronary artery disease) Carotid stenosis Diaphragm dysfunction Dyslipidemia Hypertension LBBB (left bundle branch block) Obesity Sepsis Surgical History Surgical History H/O hernia repair H/O: hysterectomy History of surgical removal of skin lesion S/P CABG x 4 Social History Social History Smoking status: Former smoker Meds Home Medications and Allergies Home Medications Medication Instructions Recorded Confirmed Type aspirin 81 mg tablet,delayed 81 mg PO DAILY 06/08/19 12/21/22 History release (Adult Aspirin Regimen) atorvastatin 40 mg tablet 40 mg PO DAILY 06/08/19 12/21/22 History spironolactone 25 1 tablet PO DAILY #30 tabs 06/12/19 12/21/22 Rx mg-hydrochlorothiazide 25 mg tablet metoprolol succinate 25 mg See Rx Instructions .Route 10/23/22 12/21/22 Rx tablet,extended release 24 hr .COMPLEX #90 tabs Allergies Allergy/AdvReac Type Severity Reaction Status Date / Time No Known Allergies Allergy Verified 04/16/23 22:06 Vital Signs Vital Signs - 24 hr 04/16/23 22:07 04/16/23 22:22 04/16/23 22:25 Temperature 36.8 C Pulse Rate 73 114 H Respiratory Rate 20 24 H Blood Pressure 71/40 L 77/50 L Pulse Oximetry 91 90 94 Oxygen Delivery Room Air Nasal Cannula Oxygen Flow Rate 2 04/16/23 22:16 04/16/23 22:17 04/16/23 22:30 Temperature Pulse Rate 119 H 119 H 112 H Respiratory Rate 34 H 32 H 34 H Blood Pressure 77/50 L 63/39 L Pulse Oximetry 90 95 Oxygen Delivery Oxygen Flow Rate 04/16/23 22:31 04/16/23 22:48 04/16/23 22:49 Temperature Pulse Rate 112 H 109 H 109 H Respiratory Rate 30 H 29 H 29 H Blood Pressure 74/53 L Pulse Oximetry 93 95 94 Oxygen Delivery Oxygen Flow Rate 04/16/23 23:00 04/16/23 23:01 04/16/23 23:15 Temperature Pulse Rate 109 H 111 H 107 H Respiratory Rate 29 H 32 H 28 H Blood Pressure 73/53 L 64/49 L Pulse Oximetry 94 94 90 Oxygen Delivery Oxygen Flow Rate 04/16/23 23:16 04/16/23 23:30 04/16/23 23:31 Temperature Pulse Rate 105 H 107 H 105 H Respiratory Rate 28 H 18 27 H Blood Pressure 64/50 L Pulse Oximetry 92 Oxygen Delivery Oxygen Flow Rate 04/16/23 23:45 04/16/23 23:46 04/16/23 23:52 Temperature Pulse Rate 104 H 104 H 101 H Respiratory Rate 25 H 29 H 24 H Blood Pressure 57/44 L 65/51 L Pulse Oximetry 92 92 94 Oxygen Delivery Oxygen Flow Rate 04/17/23 00:00 04/17/23 00:01 04/17/23 00:15 Temperature Pulse Rate 99 100 95 Respiratory Rate 22 H 25 H 25 H Blood Pressure 74/53 L
[2023-04-17] MEDS: SODIUM CHLORIDE 0.9% IV 2,300 ML/1,000 ML BAG 999 ML IV CONT ×2 (01:00→03:33)
[2023-04-17] MEDS: NOREPINEPHRINE 8 MG/D5W 250 ML 8 MG/250 ML BAG 9.38 MG IV CONT (01:22)
--- NOTE | 2023-04-17 01:32 | WPDANESEPPF ---
Anes - Initial Pre Proc Eval Procedure: Operation Date: 04/17/23 00:45 Proposed Procedures p Cysto, RPG, Stone Ext, Stent Placement - Luis Alfrdeo Negro MD Date/Time: 04/17/23 01:32 Pre Op Diagnosis: urosepsis Patient Data Age: 78 Gender: F Height: 1.68 m Weight: 77.27 kg Last Vital Signs Temp 36.8 C 04/16/23 22:07 Pulse 102 H 04/17/23 01:22 Resp 25 H 04/17/23 00:16 BP 70/51 L 04/17/23 01:22 Pulse Ox 98 04/17/23 00:16 O2 Del Method Nasal Cannula 04/16/23 22:25 O2 Flow Rate 2 04/16/23 22:25 Allergies Allergy/AdvReac Type Severity Reaction Status Date / Time No Known Allergies Allergy Verified 04/16/23 22:06 Home Medications Medication Instructions Recorded Confirmed Type aspirin 81 mg tablet,delayed 81 mg PO DAILY 06/08/19 12/21/22 History release (Adult Aspirin Regimen) atorvastatin 40 mg tablet 40 mg PO DAILY 06/08/19 12/21/22 History spironolactone 25 1 tablet PO DAILY #30 tabs 06/12/19 12/21/22 Rx mg-hydrochlorothiazide 25 mg tablet metoprolol succinate 25 mg See Rx Instructions .Route 10/23/22 12/21/22 Rx tablet,extended release 24 hr .COMPLEX #90 tabs Laboratory Tests 04/16/23 04/16/23 04/16/23 23:01 23:02 23:04 WBC 10.1 H K/mm3 (4.5-10.0) RBC 3.62 L M/mm3 (4.2-5.4) Hgb 11.3 L g/dL (12.0-15.0) Hct 34.4 L % (37.0-47.0) MCV 95.0 fl (80-100) MCH 31.2 pg (26-34) MCHC 32.8 g/dl (32-36) RDW 12.2 % (11.5-14.5) Plt Count 203 k/mm3 (150-375) MPV 10.4 fl (7.4-10.4) Immature Gran % (Auto) 0.6 H % (0-0.5) Neut % (Auto) 95.9 H % (45.5-73.1) Lymph % (Auto) 1.2 L % (18.3-44.2) [place] % (Auto) 1.9 L % (2.6-8.5) Eos % (Auto) 0.1 % (0-4.4) Baso % (Auto) 0.3 % (0.2-1.2) Lymph # (Auto) 0.12 L K/mm3 (0.9-3.2) [place] # (Auto) 0.2 K/mm3 (0.1-0.6) Eos # (Auto) 0.0 K/mm3 (0-0.3) Baso # (Auto) 0.0 K/mm3 (0.0-0.1) Abs Immat Gran (auto) 0.06 H K/mm3 (0.00-0.031) Absolute Neuts (auto) 9.7 H K/mm3 (1.3-6.7) Absolute Nucleated RBC 0.0 K/mm3 (0.0-0.012) Nucleated RBC % 0.0 % (0.0-0.2) PT 15.5 H Seconds (11.1-14.7) INR 1.2 APTT 31.2 SECONDS (22.3-36.8) D-Dimer 3.37 H ug/mL (<0.48) Sodium 132 L mmol/L (137-145) Potassium 3.0 L mmol/L (3.4-5.0) Chloride 96 L mmol/L (98-107) Carbon Dioxide 24 mmol/L (22-30) Anion Gap 12 mmol/L (8-16) BUN 32 H mg/dL (7-17) Creatinine 1.60 H mg/dL (0.7-1.0) Estim Creat Clear Calc 28 ml/min Estimated GFR 31 L (59 - ) Glucose 181 H mg/dL (65-110) Lactic Acid 4.3 H* mmol/L (0.7-2.0) Calcium 8.1 L mg/dL (8.4-10.2) Magnesium 1.6 mg/dL (1.6-2.3) Total Bilirubin 1.8 H mg/dL (0.2-1.3) AST 42 H U/L (14-36) ALT 40 H U/L (6-35) Alkaline Phosphatase 93 U/L (38-126) Troponin I Pending 0.033 ng/mL (0.000-0.034) C-Reactive Protein 6.6 H mg/dL (<1.0) Total Protein 6.0 L g/dL (6.3-8.2) Albumin 3.0 L g/dL (3.5-5.1) Lipase 38 U/L (23-300) TSH (Reflex) 2.740 uIU/mL (0.465-4.68) Urine Color Dark yellow (Yellow) Urine Appearance Cloudy H (Clear) Urine pH 5.0 (5.0-9.0) Ur Specific [place] 1.029 (1.001-1.035) Urine Protein 1+ H mg/dL (Negative) Urine Glucose (UA) Negative mg/dL (Negative) Urine Ketones Trace H mg/dL (Negative) Ur Blood (Man) 3+ H (Negative) Urine Nitrate Positive H (Negative) Urine Bilirubin 2+ H (Negative) Urine Urobilinogen 2.0 H mg/dL
[2023-04-17] MEDS: LACTATED RINGERS 1,000 ML 30 ML IV CONT ×2 (02:02→02:30)
--- NOTE | 2023-04-17 02:07 | P.OP_ITS ---
Procedure Note - Detailed Date of Procedure 04/17/23 Pre-op Diagnosis urosepsis Right hydronephrosis Post-op Diagnosis Same Procedure Performed cystoscopy and right retrograde and right stent Surgeon Luis Alfredo Negro MD Anesthesia General Indications right hydronephrosis and sepsis Findings right hydronephrosis Description of Procedure After consent was obtained and a time out completed. Patient was positioned lithotomy with a general anesthesia. Her vaginal vault was dressed and draped in sterile fashion. She has an extensive yeast infection. Cystoscopy was completed. Bladder was normal and no lesions or tumors. A right retrograde was completed, there was hydronephrosis from a cut off point in the proximal ureter. The renal pelvis was distended. I question that there may be debris in the renal pelvis but no discrete filling defect. A 6 uruguayan stent was placed--variable length. She tolerated the procedure and transferred to the recovery area. Implants 6 uruguayan stent Drains No Packing No Pathology None sent Disposition PACU
[2023-04-17 02:10] LABS: Reflex Lactic Acid Yes or No Add Lactic
--- NOTE | 2023-04-17 02:33 | SUR.PHASEI ---
0202 dr. tidwell at bedside, inserting christie catheter.
--- NOTE | 2023-04-17 02:53 | PC.NURSE ---
This patient, Nicky Kuo, was admitted to Intensive Care Unit-3. Patient/family oriented to hospital policies and general routines including ID bracelet, bed and alarms, visiting hours, pain management, procedures, bathroom and other care routines, personal items, smoking policy, room service/diet, and visiting hours. Information on how to activate the Rapid Response Team has been discussed. Patient/Family are encouraged to report perceived risks to care and to ask questions if they do not understand what they are told or what they should do.
--- NOTE | 2023-04-17 03:11 | PM.IMHP ---
H&P: HPI History of Present Illness Date/Time: 04/17/23 03:11 Chief Complaint: Flank pain Narrative: 78-year-old female with a past medical history of diabetes, hypertension, grade 2 diastolic dysfunction, and coronary artery disease with preserved ejection despite akinetic segments who presented to the ER with shivering and not feeling well. She was having central back pain. She went saw her primary care doctor the day prior and she reports that she was started on antibiotics for possible pneumonia. However there is no documentation of antibiotics on external medication reconciliation. The patient currently is confused and alert oriented only to person. She knows that she is in the hospital but does not know what hospital and thought she was at [place]. She thought the month was October and could not tell me the year. On arrival to ER patient was significantly hypotensive with systolic blood pressures in the 70s. Throughout her ER course patient's blood pressures did drop as low as 57/44. She received 30 mL/kilogram fluid bolus but despite this blood pressures remained with blood pressures 84/55. The patient's maps in the ER ranged from 55-65. Central line was placed in the ER. The patient's imaging demonstrated right-sided emphysematous pyelitis and Urology was consulted. Patient was taken directly to the OR. Evidently in the OR the patient's blood pressures stabilize after Levophed was initiated. However in the ER anesthesiology stopped the Levophed due to adequate pressures. However, intraoperatively the patient is noted to have received total of 500 mcg and phenylephrine pushes in the OR. The patient did receive an additional 800 mL of LR in the OR. OR nurses reported that they had difficulty obtaining the patient's pulse ox. The patient's respiratory rate when she arrived to the IMU was 30-40. She was on 3 L nasal cannula. Nursing staff in the ICU had to titrate the patient's oxygen up to 7 L at which time she had adequate. On arrival to the ICU the patient's blood pressures rapidly dropped back down into the 60s in 70 systolic. On exam patient was noted to have crackles at the left base. She reports resolution of her back pain. She has chronic urinary incontinence that is about is frequent as her baseline. She has excoriation irritation in her groin due to chronic incontinence. She denies any dysuria or hematuria. She was having some vomiting at home of some brownish appearing material but denies any coffee-ground emesis or hematemesis. She has had decreased appetite for 1 day. She thought that she may be constipated due to her back pain and nausea. However she has had a bowel movement since admission and had a prior bowel movement 1 or 2 days ago. She reports her bowel movements have been normal. She denies any chest pain or shortness of breath. She has not had any cough or congestion. She reports that she has been for many years. She lives with her son who has special needs. She would want her [id number] or brother to be her surrogate decision maker. Review of Systems Review of Systems: 12 systems were reviewed with pertinent positives and negatives per HPI. Except as documented in the HPI, all other systems were reviewed and are negative. However review of systems may be limited as the patient is only oriented to person. [facility] Past Medical History Medical History (Updated 04/17/23 @ 04:22 by Aixa Haskins DO) Ascending aortic aneurysm CAD (coronary artery disease) Carotid stenosis Diaphragm dysfunction Diet-controlled type 2 diabetes mellitus Dyslipidemia Grade II diastolic dysfunction Hypertension Ischemic cardiomyopathy LBBB (left bundle branch block) Overactive bladder Chronic urinary incontinence Surgical History Surgical History (Updated 04/17/23 @ 04:22 by Aixa Haskins DO) H/O: hysterectomy History of blepharoplasty History of surgical removal of skin lesion History of umbili
--- NOTE | 2023-04-17 03:34 | PC.NURSE ---
Patient received a total of 2300ml NS bolus in ED prior to going to surgery.
[2023-04-17] MEDS: SODIUM CHLORIDE 0.9% IV 1,000 ML 125 ML IV CONT (03:39)
[2023-04-17 04:56] LABS: Basophils Percent Auto 0.2 % (0.2-1.2); Hematocrit 32.5 % (37.0-47.0); Hemoglobin 10.5 g/dL (12.0-15.0); Immature Granulocyte Absolute 0.06 K/mm3 (0.00-0.031); Immature Granulocyte Percent A 0.5 % (0-0.5); Lymphocytes Absolute Auto 0.18 K/mm3 (0.9-3.2); Lymphocytes Percent Auto 1.5 % (18.3-44.2); Mean Corpuscular HGB Conc 32.3 g/dl (32-36); Mean Corpuscular Hemoglobin 31.1 pg (26-34); Mean Corpuscular Volume 96.2 fl (80-100); Mean Platelet Volume 10.4 fl (7.4-10.4); Monocytes Absolute Auto 0.1 K/mm3 (0.1-0.6); Monocytes Percent Auto 1.1 % (2.6-8.5); Neutrophils Absolute Auto 11.3 K/mm3 (1.3-6.7); Neutrophils Percent Auto 96.7 % (45.5-73.1); Platelet Count Result 175 k/mm3 (150-375); Red Blood Count 3.38 M/mm3 (4.2-5.4); Red Cell Distribution Width 12.5 % (11.5-14.5); White Blood Count 11.6 K/mm3 (4.5-10.0)
[2023-04-17] MEDS: HYDROCORTISONE SODIUM SUCCINATE 100 MG/2 ML VIAL IV PUSH ×3 (05:32→21:01)
[2023-04-17 05:35] LABS: Anion Gap 12 mmol/L (8-16); Blood Urea Nitrogen 30 mg/dL (7-17); Calcium 7.4 mg/dL (8.4-10.2); Carbon Dioxide 19 mmol/L (22-30); Chloride 105 mmol/L (98-107); Estimated CRCL calculation 27 ml/min; Estimated Glomerular Filt Rate 34; Glucose 192 mg/dL (65-110); Potassium 3.5 mmol/L (3.4-5.0); Sodium 136 mmol/L (137-145)
[2023-04-17 05:43] LABS: Troponin I 0.104 ng/mL (0.000-0.034)
[2023-04-17] MEDS: VASOPRESSIN INJ 100 UNITS in DEXTROSE 5% 95 ML IV CONT (06:05)
[2023-04-17 06:11] LABS: MRSA (PCR) NOT DETECTED (NOT DETECTE)
[2023-04-17] MEDS: CENTRAL LINE FLUSH 10 ML IV PUSH ×3 (06:12→21:01)
[2023-04-17 07:47] LABS: Alanine Aminotransferase 20 U/L (6-35); Albumin Level 3.2 g/dL (3.5-5.1); Alkaline Phosphatase 119 U/L (38-126); Aspartate Amino Transferase 40 U/L (14-36); Bilirubin Direct 0.3 mg/dL (0-0.3); Bilirubin,Total 2.5 mg/dL (0.2-1.3)
--- NOTE | 2023-04-17 08:03 | ECG_ITS ---
Measurements Intervals [place] Rate: 95 P: 46 GA: 181 QRS: -72 QRSD: 141 T: 86 QT: 371 QTc: 468 Interpretive Statements SINUS RHYTHM LEFT BUNDLE BRANCH BLOCK BASELINE ARTIFACT- I, AVR, V1 ABNORMAL ECG COMPARED TO ECG 04/16/2023 22:21:29 SINUS RHYTHM NOW PRESENT Electronically Signed On 04-17-2023 8:30:42 MANAGEMENT DEVELOPMENT SPECIALIST by Robinson Foster D.O.
--- NOTE | 2023-04-17 08:08 | PC.NURSE ---
Patient found on 14 mcg of Levophed at 0700. Levophed titrated to 13 mcg per protocol per blood pressure.
[2023-04-17] MEDS: POTASSIUM CHLORIDE 20 MEQ PACKET (FOR LIQUID) 40 MEQ PO (08:26)
[2023-04-17] MEDS: PANTOPRAZOLE SODIUM IV 40 MG VIAL IV PUSH (08:27)
[2023-04-17] MEDS: ALBUMIN HUMAN 25% 25 GM/100 ML 100 ML IVPB ×3 (08:27→21:01)
[2023-04-17 08:40] LABS: NT Pro B Type Natriuretic Pept 13300 pg/mL (19.9-100)
--- NOTE | 2023-04-17 08:49 | WPDCNINT ---
Assessment and Plan Assessment and plan (1) Septic shock: Code(s): A41.9 - Sepsis, unspecified organism; R65.21 - Severe sepsis with septic shock Status: Acute Assessment and Plan: Secondary to UTI and emphysematous pyelitis Now status post cystoscopy and stent placement Patient received adequate amount of IV fluids and appears to have now developed volume overload. Hold further IV crystalloids Continue Levophed and vasopressin infusions. Increased vasopressin to 0.04 units Add stress dose hydrocortisone Add 25% albumin Urine and blood cultures have been sent Continue meropenem (2) Encephalopathy: Code(s): G93.40 - Encephalopathy, unspecified Status: Acute Assessment and Plan: Likely metabolic encephalopathy. Patient is alert awake but not oriented. She has nonfocal exam Check TSH Hold further sedatives Monitor (3) DARRYN (acute kidney injury): Code(s): N17.9 - Acute kidney failure, unspecified Status: Acute Assessment and Plan: DARRYN secondary to septic shock, pyelonephritis and kidney stone Patient has received adequate amount IV fluids and appears to be volume overloaded hence further fluids will be held Monitor urine output electrolytes and creatinine (4) Congestive heart failure: Code(s): I50.9 - Heart failure, unspecified Status: Acute Assessment and Plan: Patient has history of diastolic dysfunction and appears to have developed pulmonary edema and BNP 07300 Hold further IV fluids Check echocardiogram Supplemental oxygen (5) Emphysematous pyelitis: Code(s): N12 - Tubulo-interstitial nephritis, not specified as acute or chronic Status: Acute Assessment and Plan: See above (6) Pulmonary edema: Code(s): J81.1 - Chronic pulmonary edema Status: Acute Assessment and Plan: See above (7) CAD (coronary artery disease), autologous vein bypass graft: Code(s): I25.810 - Atherosclerosis of coronary artery bypass graft(s) without angina pectoris Status: Acute Assessment and Plan: History of coronary disease status post CABG. Continue aspirin statin (8) Fungal skin infection: Code(s): B36.9 - Superficial mycosis, unspecified Status: Acute Assessment and Plan: Continue fluconazole Plan DVT prophylaxis -Lovenox Nutrition -advance diet Code Status - Full Code Total Critical Care Time - 35 minutes Due to a high probability of clinically significant, life threatening deterioration, the patient required my highest level of preparedness to intervene emergently and I personally spent this critical care time directly and personally managing the patient. This critical care time included obtaining a history; examining the patient; pulse oximetry; ordering and review of studies; arranging urgent treatment with development of a management plan; evaluation of patient's response to treatment; frequent reassessment; and discussions with other providers. It was exclusive of separately billable procedures and treating other patients and teaching time. Please see Assessment and Plan section and the rest of the note for further information on patient assessment and treatment [facility] Consult Note Consult date: 04/17/23 Reason for consult: UTI, sepsis, DARRYN, renal stone HPI: Nicky Kuo is a 78 year old female with?past medical history of diabetes, hypertension, grade 2 diastolic dysfunction, and coronary artery disease status post CABG with preserved ejection despite akinetic segments who presented to the ER yesterday with shivering, nausea vomiting, back pain and not feeling well.? She reports that yesterday she started having vomiting with no blood as stated with at. She also noticed back pain and felt chills and rigors. She went saw her primary care doctor the day prior and she reports that she was started on antibiotics for possible pneumonia.? In ER patient was confused and alert felisha
[2023-04-17] MEDS: FLUCONAZOLE 100 MG/NACL 50 ML 100 MG/50 ML BTL 50 MG IVPB (09:21)
[2023-04-17] MEDS: ATORVASTATIN 10 MG TABLET PO (10:05)
[2023-04-17] MEDS: ASPIRIN 81 MG ENTERIC TABLET PO (10:05)
[2023-04-17 10:40] LABS: Hemoglobin A1C 6.8 % (<5.7)
[2023-04-17] MEDS: NOREPINEPHRINE 8 MG/D5W 250 ML 8 MG/250 ML BAG 28.13 MG IV CONT (11:25)
[2023-04-17 11:52] LABS: Glucose Point of Care 424 mg/dl (65-105)
[2023-04-17] MEDS: ACETAMINOPHEN 325 MG TABLET 650 MG PO (11:52)
[2023-04-17] MEDS: INSULIN GLARGINE (*BKC) 100 UNITS/ML 10 UNITS SUB-Q ×2 (11:59→16:36)
[2023-04-17] MEDS: INSULIN HUMAN REGULAR (*BKC) 100 UNITS/ML 7 UNITS IV PUSH (12:03)
--- NOTE | 2023-04-17 15:02 | PM.IMPN ---
Progress Note: A&P Assessment and Plan (1) Septic shock: Code(s): A41.9 - Sepsis, unspecified organism; R65.21 - Severe sepsis with septic shock Status: Acute Assessment and Plan: Patient presents with shivering and found to have lactic acidosis and HoTN from septic shock from UTI and emphysematous pyelitis CTA Ch/A/P showing emphysematous pyelitis and probably pyelonephritis of right kidney Urology consulted and patient taken to OR and had cystoscopy and right ureteral stent placement. There was debris in the renal pelvis but no discrete filling defect. Patient received appropriate fluid resuscitation and now fluids stopped due to possible fluid overload Started on Levophed and vasopressin to improved HoTN. And Albumin and stress dose hydrocortisone added Cultures collected and Rocephin and Meropenem added. Rocephin since stopped. MRSA swab negative. WBC 13K. Lactic 4.3, CRP 6.6. BCx growing GNB in both bottles UCx pending Able to wean pressors today. Continue meropenem. Follow up on cultures (2) Encephalopathy: Code(s): G93.40 - Encephalopathy, unspecified Status: Acute Assessment and Plan: Likely metabolic encephalopathy. Patient was awake, alert but not oriented. She has nonfocal exam TSH normal. No imaging but felt related to infection. Holding sedatives Monitor (3) DARRYN (acute kidney injury): Code(s): N17.9 - Acute kidney failure, unspecified Status: Acute Assessment and Plan: DARRYN secondary to septic shock, pyelonephritis, diuretic meds and kidney stone Cr peaked at 1.6 and already trending down. Patient wsa on IV fluids but now stopped Monitor urine output, electrolytes and renal function (4) Congestive heart failure: Code(s): I50.9 - Heart failure, unspecified Status: Acute Assessment and Plan: Patient has history of diastolic dysfunction. BNP 26718 CTA chest showing mild dependent atelectasis CXR today reviewed showing mild infiltrate or atelectasis in the bases. Echo showing EF 55-60%, septal WM abnormalities related to BBB, Grade I DD and mild MR. Concern for fluid overload so IV fluids held On supplemental oxygen but weaning off easily Follow (5) Elevated troponin: Code(s): R79.89 - Other specified abnormal findings of blood chemistry Status: Acute Assessment and Plan: Troponin noted to be elevated 0.2. EKG showing NSR with left BBB. The BBB is old. [place] related to septic shock. Continue ASA and statin. Add back metoprolol when able. (6) Emphysematous pyelitis: Code(s): N12 - Tubulo-interstitial nephritis, not specified as acute or chronic Status: Acute Assessment and Plan: See above (7) CAD (coronary artery disease), autologous vein bypass graft: Code(s): I25.810 - Atherosclerosis of coronary artery bypass graft(s) without angina pectoris Status: Acute Assessment and Plan: History of coronary disease status post CABG. Continue aspirin and statin (8) Fungal skin infection: Code(s): B36.9 - Superficial mycosis, unspecified Status: Acute Assessment and Plan: Urology noted patient has an extensive groin/vaginal yeast infection. She was started on fluconazole (9) Diet-controlled type 2 diabetes mellitus: Code(s): E11.9 - Type 2 diabetes mellitus without complications Status: Acute Assessment and Plan: A1c 6.8. Bent[place] has diet-controlled DM. The patient's blood glucose was reviewed on 04/17. Glucose poorly controlled. Continue AccuCheks covering with sliding scale. Hypoglycemia protocol available as needed. lantus added Plan DVT prophylaxis -Lovenox Code Status - Full Code Subjective Date/time seen: 04/17/23 15:02 Interval history: 78yo female with hx of DM, HTN, G2DD and CAD with preserved EF despite akinetic segments who presented to the ER with shivering and not feeling well.??
[2023-04-17 15:56] LABS: Glucose Point of Care 433 mg/dl (65-105)
[2023-04-17] MEDS: INSULIN HUMAN REGULAR (*BKC) 100 UNITS in SODIUM CHLORIDE 0.9% IV 99 ML 7 UNITS IV CONT (16:59)
[2023-04-17 17:04] LABS: Glucose Point of Care 429 mg/dl (65-105)
[2023-04-17 18:15] LABS: Glucose Point of Care 412 mg/dl (65-105)
[2023-04-17 19:01] LABS: Glucose Point of Care 392 mg/dl (65-105)
[2023-04-17 19:07] LABS: Anion Gap 14 mmol/L (8-16); Blood Urea Nitrogen 29 mg/dL (7-17); Carbon Dioxide 19 mmol/L (22-30); Chloride 102 mmol/L (98-107); Estimated CRCL calculation 28 ml/min; Estimated Glomerular Filt Rate 36; Glucose 391 mg/dL (65-110); Potassium 4.1 mmol/L (3.4-5.0); Sodium 135 mmol/L (137-145)
[2023-04-17 20:06] LABS: Glucose Point of Care 320 mg/dl (65-105)
[2023-04-17 21:09] LABS: Anion Gap 14 mmol/L (8-16); Blood Urea Nitrogen 29 mg/dL (7-17); Calcium 8.3 mg/dL (8.4-10.2); Carbon Dioxide 20 mmol/L (22-30); Chloride 102 mmol/L (98-107); Estimated CRCL calculation 30 ml/min; Estimated Glomerular Filt Rate 40; Glucose 246 mg/dL (65-110); Potassium 3.6 mmol/L (3.4-5.0); Sodium 136 mmol/L (137-145)
[2023-04-17 21:20] LABS: Glucose Point of Care 212 mg/dl (65-105)
[2023-04-17] MEDS: NOREPINEPHRINE 8 MG/D5W 250 ML 8 MG/250 ML BAG 16.88 MG IV CONT (22:04)
[2023-04-17] MEDS: POTASSIUM CHLORIDE 20 MEQ ER TABLET 40 MEQ PO (22:04)
[2023-04-17 22:16] LABS: Glucose Point of Care 160 mg/dl (65-105)
[2023-04-18] VITALS (78 sets, daily range): BP systolic 82–113; BP diastolic 58–87; PULSE 72–96; RESP 14–32; TEMP 35.8–36.6; O2SAT 92–98
[2023-04-18 00:16] LABS: Glucose Point of Care 127 mg/dl (65-105)
[2023-04-18 00:16] LABS: Glucose Point of Care 121 mg/dl (65-105)
[2023-04-18] MEDS: MEROPENEM 1 GM/NS 100 ML 1 GM/100 ML BAG IVPB ×3 (00:16→23:14)
[2023-04-18 01:24] LABS: Glucose Point of Care 143 mg/dl (65-105)
[2023-04-18] MEDS: HYDROcodone/acetaminophen (*CRX) 5-325 MG TABLET 1 TAB PO (02:15)
[2023-04-18] MEDS: ALBUMIN HUMAN 25% 25 GM/100 ML 100 ML IVPB ×2 (02:16→08:39)
[2023-04-18 02:22] LABS: Glucose Point of Care 150 mg/dl (65-105)
[2023-04-18 03:17] LABS: Glucose Point of Care 167 mg/dl (65-105)
[2023-04-18 04:14] LABS: Glucose Point of Care 175 mg/dl (65-105)
[2023-04-18] MEDS: HYDROCORTISONE SODIUM SUCCINATE 100 MG/2 ML VIAL IV PUSH (05:26)
[2023-04-18] MEDS: CENTRAL LINE FLUSH 10 ML IV PUSH ×3 (05:26→20:59)
[2023-04-18 06:16] LABS: Hematocrit 30.2 % (37.0-47.0); Hemoglobin 9.8 g/dL (12.0-15.0); Immature Platelet Fraction Pct 7.3 % (0.9-11.2); Mean Corpuscular HGB Conc 32.5 g/dl (32-36); Mean Corpuscular Hemoglobin 31.5 pg (26-34); Mean Corpuscular Volume 97.1 fl (80-100); Mean Platelet Volume 11.1 fl (7.4-10.4); Platelet Count Result 132 k/mm3 (150-375); Red Blood Count 3.11 M/mm3 (4.2-5.4); White Blood Count 33.3 K/mm3 (4.5-10.0)
[2023-04-18 06:34] LABS: Alanine Aminotransferase 58 U/L (6-35); Albumin Level 3.8 g/dL (3.5-5.1); Alkaline Phosphatase 109 U/L (38-126); Anion Gap 11 mmol/L (8-16); Aspartate Amino Transferase 80 U/L (14-36); Bilirubin,Total 1.6 mg/dL (0.2-1.3); Blood Urea Nitrogen 32 mg/dL (7-17); Calcium 8.4 mg/dL (8.4-10.2); Carbon Dioxide 21 mmol/L (22-30); Chloride 104 mmol/L (98-107); Estimated CRCL calculation 36 ml/min; Estimated Glomerular Filt Rate 48; Glucose 169 mg/dL (65-110); Magnesium 2.1 mg/dL (1.6-2.3); Potassium 4.5 mmol/L (3.4-5.0); Sodium 136 mmol/L (137-145)
[2023-04-18 07:02] LABS: Glucose Point of Care 173 mg/dl (65-105)
[2023-04-18 07:02] LABS: Glucose Point of Care 171 mg/dl (65-105)
[2023-04-18 07:02] LABS: Glucose Point of Care 157 mg/dl (65-105)
[2023-04-18 08:01] LABS: Glucose Point of Care 155 mg/dl (65-105)
--- NOTE | 2023-04-18 08:24 | WPDINTPN ---
Progress Note: A&P Assessment and Plan (1) Septic shock: Code(s): A41.9 - Sepsis, unspecified organism; R65.21 - Severe sepsis with septic shock Status: Acute Assessment and Plan: Secondary to UTI and emphysematous pyelitis Now status post cystoscopy and stent placement 04/17 Patient received adequate amount of IV fluids and appears to have now developed volume overload. Hold further IV crystalloids Continue Levophed but will discontinue vasopressin infusion. Discontinue stress dose hydrocortisone Discontinue 25% albumin Urine cultures growing E coli and blood culture are growing Gram-negative bacilli in both bottles Continue meropenem (2) Encephalopathy: Code(s): G93.40 - Encephalopathy, unspecified Status: Acute Assessment and Plan: Likely metabolic encephalopathy which is improved as patient is now alert awake and oriented x3 She has nonfocal exam Normal tSH Hold further sedatives Monitor (3) DARRYN (acute kidney injury): Code(s): N17.9 - Acute kidney failure, unspecified Status: Acute Assessment and Plan: DARRYN secondary to septic shock, pyelonephritis and kidney stone Patient has received adequate amount IV fluids and appears to be volume overloaded hence further fluids have been held CT scan the abdomen showed pyelonephritis and stones in the right renal pelvis Creatinine is improving. Monitor urine output electrolytes and creatinine (4) Congestive heart failure: Code(s): I50.9 - Heart failure, unspecified Status: Acute Assessment and Plan: Patient has history of diastolic dysfunction and appears to have developed pulmonary edema and BNP 60303 Hold further IV fluids Supplemental oxygen patient is down to 2 L Echo summary ? 1. Complete two-dimensional, color flow and Doppler transthoracic echocardiogram is performed. ? 2. Normal left ventricular size overall preserved systolic function and grade 1 diastolic noncompliance. ? 3. Abnormal septal motion appears to be the result of bundle branch block. ? 4. 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 Continue aspirin statin (8) Fungal skin infection: Code(s): B36.9 - Superficial mycosis, unspecified Status: Acute Assessment and Plan: Continue fluconazole (9) Elevated troponin: Code(s): R79.89 - Other specified abnormal findings of blood chemistry Status: Acute Assessment and Plan: Patient has elevated troponin. She does have history of coronary disease status post CABG. Echo reviewed as above She denies any chest pain an EKG does not show any ST elevation. She does have a left bundle branch block which is old Likely elevated troponin secondary to septic shock and DARRYN Continue medical management with aspirin statin and resume beta-roxanne when hemodynamics allow (10) Diet-controlled type 2 diabetes mellitus: Code(s): E11.9 - Type 2 diabetes mellitus without complications Status: Acute Assessment and Plan: Patient has history of diabetes mellitus with currently not on any treatment as an outpatient. She states that her diabetes improved and she came of her medication many years ago. Currently her blood sugars have been elevated in the hospital which could be secondary to stress or hydrocortisone. She was started on insulin infusion last night due to elevated blood glucose. This morning I wendie
[2023-04-18] MEDS: INSULIN GLARGINE (*BKC) 100 UNITS/ML 20 UNITS SUB-Q (08:35)
[2023-04-18] MEDS: MONTELUKAST SODIUM 10 MG TABLET PO (08:38)
[2023-04-18] MEDS: ENOXAPARIN 30 MG/0.3 ML SYRINGE SUB-Q (08:38)
[2023-04-18] MEDS: ATORVASTATIN 10 MG TABLET PO (08:38)
[2023-04-18] MEDS: ASPIRIN 81 MG ENTERIC TABLET PO (08:38)
[2023-04-18] MEDS: PANTOPRAZOLE SODIUM IV 40 MG VIAL IV PUSH (08:39)
[2023-04-18] MEDS: FLUCONAZOLE 100 MG/NACL 50 ML 100 MG/50 ML BTL 50 MG IVPB (08:42)
--- NOTE | 2023-04-18 09:51 | PM.IMPN ---
Progress Note: A&P Assessment and Plan (1) Septic shock: Code(s): A41.9 - Sepsis, unspecified organism; R65.21 - Severe sepsis with septic shock Status: Acute Assessment and Plan: Patient presents with shivering and found to have lactic acidosis and HoTN from septic shock from UTI and emphysematous pyelitis CTA Ch/A/P showing emphysematous pyelitis and probably pyelonephritis of right kidney Urology consulted and patient taken to OR 04/17 and had cystoscopy and right ureteral stent placement. There was debris in the renal pelvis but no discrete filling defect. Patient received appropriate fluid resuscitation and now fluids stopped due to possible fluid overload Started on Levophed and vasopressin to improved HoTN. And Albumin and stress dose hydrocortisone added Cultures collected and Rocephin and Meropenem added. Rocephin since stopped. MRSA swab negative. WBC 13K. Lactic 4.3, CRP 6.6. BCx growing GNB in both bottles UCx growing EColi WBC up to 33K but on steroids. Continue to wean pressors as tolerated Continue meropenem. Follow up on cultures (2) Encephalopathy: Code(s): G93.40 - Encephalopathy, unspecified Status: Acute Assessment and Plan: Likely metabolic encephalopathy. Patient was awake, alert but not oriented. She has nonfocal exam TSH normal. No imaging but felt related to infection. Holding sedatives Monitor (3) DARRYN (acute kidney injury): Code(s): N17.9 - Acute kidney failure, unspecified Status: Acute Assessment and Plan: DARRYN secondary to septic shock, pyelonephritis, diuretic meds and kidney stone Cr peaked at 1.6 and already trending down. Patient was on IV fluids but now stopped Monitor urine output, electrolytes and renal function (4) Congestive heart failure: Code(s): I50.9 - Heart failure, unspecified Status: Acute Assessment and Plan: Patient has history of diastolic dysfunction. BNP 84911 CTA chest showing mild dependent atelectasis CXR today reviewed showing mild infiltrate or atelectasis in the bases. Echo showing EF 55-60%, septal WM abnormalities related to BBB, Grade I DD and mild MR. Concern for fluid overload so IV fluids held On supplemental oxygen but weaning off easily Repeat CXR. Follow (5) Elevated troponin: Code(s): R79.89 - Other specified abnormal findings of blood chemistry Status: Acute Assessment and Plan: Troponin noted to be elevated 0.2. EKG showing NSR with left BBB. The BBB is old. Echo as above. [place] related to septic shock. Continue ASA and statin. Add back metoprolol when able. (6) Emphysematous pyelitis: Code(s): N12 - Tubulo-interstitial nephritis, not specified as acute or chronic Status: Acute Assessment and Plan: See above (7) CAD (coronary artery disease), autologous vein bypass graft: Code(s): I25.810 - Atherosclerosis of coronary artery bypass graft(s) without angina pectoris Status: Acute Assessment and Plan: History of coronary disease status post CABG. Continue aspirin and statin (8) Fungal skin infection: Code(s): B36.9 - Superficial mycosis, unspecified Status: Acute Assessment and Plan: Urology noted patient has an extensive groin/vaginal yeast infection. She was started on fluconazole (9) Diet-controlled type 2 diabetes mellitus: Code(s): E11.9 - Type 2 diabetes mellitus without complications Status: Acute Assessment and Plan: A1c 6.8. Patient has diet-controlled DM. The patient's blood glucose was reviewed on 04/18 Patient was started on insulin drip due to sevre hyperglycemia. Glucose better controlled. Continue AccuCheks covering with sliding scale. Hypoglycemia protocol available as needed. lantus resumed Plan Thrombocytopenia - plt count low at 132K. [place] related to sepsis. Monitor closely wince on Lovenox. Anemia - Hgb normal on admission b
[2023-04-18] MEDS: INSULIN ASPART (*BKC) 100 UNITS/ML SUB-Q ×3 (11:41→20:58)
[2023-04-18 11:44] LABS: Glucose Point of Care 231 mg/dl (65-105)
[2023-04-18] MEDS: MIDODRINE HCL 10 MG TABLET PO (17:11)
[2023-04-18 17:15] LABS: Glucose Point of Care 218 mg/dl (65-105)
[2023-04-18 21:13] LABS: Glucose Point of Care 225 mg/dl (65-105)
[2023-04-19] VITALS (11 sets, daily range): BP systolic 89–113; BP diastolic 62–79; PULSE 71–92; RESP 18–27; TEMP 36.2–37.1; O2SAT 92–95
[2023-04-19] MEDS: CENTRAL LINE FLUSH 10 ML IV PUSH (04:25)
[2023-04-19 04:41] LABS: Hematocrit 32.2 % (37.0-47.0); Hemoglobin 10.3 g/dL (12.0-15.0); Immature Platelet Fraction Pct 7.9 % (0.9-11.2); Mean Corpuscular Hemoglobin 31.5 pg (26-34); Mean Corpuscular Volume 98.5 fl (80-100); Mean Platelet Volume 11.1 fl (7.4-10.4); Platelet Count Result 141 k/mm3 (150-375); Red Blood Count 3.27 M/mm3 (4.2-5.4); Red Cell Distribution Width 13.1 % (11.5-14.5); White Blood Count 24.2 K/mm3 (4.5-10.0)
[2023-04-19 04:59] LABS: Alanine Aminotransferase 103 U/L (6-35); Albumin Level 3.7 g/dL (3.5-5.1); Alkaline Phosphatase 131 U/L (38-126); Anion Gap 9 mmol/L (8-16); Aspartate Amino Transferase 105 U/L (14-36); Blood Urea Nitrogen 39 mg/dL (7-17); Calcium 8.5 mg/dL (8.4-10.2); Carbon Dioxide 24 mmol/L (22-30); Chloride 106 mmol/L (98-107); Estimated CRCL calculation 36 ml/min; Estimated Glomerular Filt Rate 48; Glucose 125 mg/dL (65-110); Magnesium 2.3 mg/dL (1.6-2.3); Potassium 3.8 mmol/L (3.4-5.0); Sodium 139 mmol/L (137-145)
[2023-04-19 08:35] LABS: Glucose Point of Care 117 mg/dl (65-105)
[2023-04-19] MEDS: MIDODRINE HCL 10 MG TABLET PO (08:40)
[2023-04-19] MEDS: ATORVASTATIN 10 MG TABLET PO (08:40)
[2023-04-19] MEDS: ASPIRIN 81 MG ENTERIC TABLET PO (08:40)
[2023-04-19] MEDS: MONTELUKAST SODIUM 10 MG TABLET PO (08:40)
[2023-04-19] MEDS: cefTRIAXone 2 GM/NS 100 ML 2 GM/100 ML BAG IVPB (08:40)
[2023-04-19] MEDS: FLUCONAZOLE 100 MG/NACL 50 ML 100 MG/50 ML BTL 50 MG IVPB (08:40)
[2023-04-19] MEDS: PANTOPRAZOLE SODIUM IV 40 MG VIAL IV PUSH (08:41)
[2023-04-19] MEDS: INSULIN GLARGINE (*BKC) 100 UNITS/ML 20 UNITS SUB-Q (08:41)
[2023-04-19] MEDS: ENOXAPARIN 30 MG/0.3 ML SYRINGE SUB-Q (08:41)
--- NOTE | 2023-04-19 08:47 | WPDUROPN2 ---
Progress Note: A&P Assessment and Plan (1) Sepsis: Code(s): A41.9 - Sepsis, unspecified organism Status: Acute (2) Hydronephrosis: Code(s): N13.30 - Unspecified hydronephrosis Status: Acute Plan Stent in place. Treat urinary tract infection with cultures specific antibiotics. Will need repeat imaging with CT scan before discharge Subjective Subjective Date/Time Seen: 04/19/23 08:47 Interval history: Currently still in the ICU. Improved after stent placement Urine and blood cultures positive for E coli Exam Narrative: No acute distress Steward catheter in place with clear yellow urine Awake and conversive Objective Data Vital Signs Vital Signs: Vital Signs - 24 hr 04/18/23 08:53 04/18/23 10:13 04/18/23 10:00 Temperature 97.3 F L Pulse Rate 77 79 Respiratory Rate 26 H Blood Pressure 89/63 L Pulse Oximetry 95 97 Oxygen Delivery Nasal Cannula Oxygen Flow Rate 2 04/18/23 10:27 04/18/23 12:00 04/18/23 12:00 Temperature Pulse Rate 79 Respiratory Rate 26 H Blood Pressure 88/60 L 83/63 L Pulse Oximetry 94 95 Oxygen Delivery Nasal Cannula Oxygen Flow Rate 1 04/18/23 12:00 04/18/23 14:00 04/18/23 14:00 Temperature Pulse Rate 79 76 76 Respiratory Rate 20 Blood Pressure 82/61 L Pulse Oximetry 94 Oxygen Delivery Oxygen Flow Rate 04/18/23 15:49 04/18/23 16:00 04/18/23 17:04 Temperature 97.2 F L Pulse Rate 73 Respiratory Rate 20 Blood Pressure 83/62 L Pulse Oximetry 97 95 Oxygen Delivery Nasal Cannula Oxygen Flow Rate 1 04/18/23 16:00 04/18/23 12:00 04/18/23 17:00 Temperature Pulse Rate 73 79 77 Respiratory Rate Blood Pressure 83/68 L 94/66 L Pulse Oximetry Oxygen Delivery Oxygen Flow Rate 04/18/23 10:00 04/18/23 10:01 04/18/23 10:22 Temperature Pulse Rate 78 78 76 Respiratory Rate 26 H 28 H 25 H Blood Pressure 89/63 L Pulse Oximetry 97 96 96 Oxygen Delivery Oxygen Flow Rate 04/18/23 10:30 04/18/23 10:36 04/18/23 10:45 Temperature Pulse Rate 75 88 87 Respiratory Rate 25 H 21 H 26 H Blood Pressure 83/58 L 88/64 L Pulse Oximetry 96 97 96 Oxygen Delivery Oxygen Flow Rate 04/18/23 10:46 04/18/23 11:00 04/18/23 11:01 Temperature Pulse Rate 88 73 72 Respiratory Rate 20 26 H 25 H Blood Pressure 86/63 L Pulse Oximetry 96 96 96 Oxygen Delivery Oxygen Flow Rate 04/18/23 11:16 04/18/23 11:30 04/18/23 11:31 Temperature Pulse Rate 77 74 74 Respiratory Rate 24 H 23 H 24 H Blood Pressure 85/59 L Pulse Oximetry 97 96 96 Oxygen Delivery Oxygen Flow Rate 04/18/23 11:45 04/18/23 11:46 04/18/23 12:00 Temperature Pulse Rate 79 82 79 Respiratory Rate 22 H 21 H 25 H Blood Pressure 96/69 L Pulse Oximetry 97 98 95 Oxygen Delivery Oxygen Flow Rate 04/18/23 12:01 04/18/23 12:15 04/18/23 12:30 Temperature Pulse Rate 79 80 76 Respiratory Rate 26 H 27 H 22 H Blood Pressure 83/68 L 85/59 L Pulse Oximetry 95 95 94 Oxygen Delivery Oxygen Flow Rate 04/18/23 12:31 04/18/23 12:45 04/18/23 13:00 Temperature Pulse Rate 77 80 78 Respiratory Rate 21 H 21 H 21 H Blood Pressure 87/64 L Pulse Oximetry 94 95 95 Oxygen Delivery Oxygen Flow Rate 04/18/23 13:01 04/18/23 13:15 04/18/23 13:30 Temperature Pulse Rate 77 77 78 Respiratory Rate 21 H 20 22 H Blood Pressure 90/66 L Pulse Oximetry 95 94 95 Oxygen Delivery Oxygen Flow Rate 04/18/23 13:31 04/18/23 13:45 04/18/23 14:00 Temperature Pulse Rate 88 77 76 Respiratory Rate 21 H 20 21 H Blood Pressure 82/61 L Pulse Oximetry 94 93 95 Oxygen Delivery Oxygen Flow Rate 04/18/23 14:01 04/18/23 14:15 04/18/23 14:30 Temperature Pulse Rate 77 78 75 Respiratory Rate 21 H 21 H 20 Blood Pressure 85/60 L Pulse Oximetry 95 95 94 Oxygen Delivery Oxygen Flow Rate 04/18/23 14:31 04/18/23 14:45
--- NOTE | 2023-04-19 10:48 | WPDINTPN ---
Progress Note: A&P Assessment and Plan (1) Septic shock: Code(s): A41.9 - Sepsis, unspecified organism; R65.21 - Severe sepsis with septic shock Status: Acute Assessment and Plan: Secondary to UTI and emphysematous pyelitis Now status post cystoscopy and stent placement 04/17 Patient received adequate amount of IV fluids and appears to have now developed volume overload. Hold further IV crystalloids Off vasopressors and stress dose hydrocortisone Discontinue 25% albumin Urine and blood cultures are growing pansensitive E coli. Change meropenem to 1 sedate Rocephin (2) Encephalopathy: Code(s): G93.40 - Encephalopathy, unspecified Status: Acute Assessment and Plan: Likely metabolic encephalopathy which is improved as patient is now alert awake and oriented x3 She has nonfocal exam Normal tSH Hold further sedatives Monitor (3) DARRYN (acute kidney injury): Code(s): N17.9 - Acute kidney failure, unspecified Status: Acute Assessment and Plan: DARRYN secondary to septic shock, pyelonephritis and kidney stone Patient has received adequate amount IV fluids and appears to be volume overloaded hence further fluids have been held CT scan the abdomen showed pyelonephritis and stones in the right renal pelvis Creatinine is has improved and stabilized 1.1 may be her baseline Monitor urine output electrolytes and creatinine (4) Congestive heart failure: Code(s): I50.9 - Heart failure, unspecified Status: Acute Assessment and Plan: Patient has history of diastolic dysfunction and appears to have developed pulmonary edema and BNP 52645 Hold further IV fluids Supplemental oxygen patient is down to 1 L Echo summary ? 1. Complete two-dimensional, color flow and Doppler transthoracic echocardiogram is performed. ? 2. Normal left ventricular size overall preserved systolic function and grade 1 diastolic noncompliance. ? 3. Abnormal septal motion appears to be the result of bundle branch block. ? 4. 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 Continue aspirin statin (8) Fungal skin infection: Code(s): B36.9 - Superficial mycosis, unspecified Status: Acute Assessment and Plan: Continue fluconazole (9) Elevated troponin: Code(s): R79.89 - Other specified abnormal findings of blood chemistry Status: Acute Assessment and Plan: Patient has elevated troponin. She does have history of coronary disease status post CABG. Echo reviewed as above She denies any chest pain an EKG does not show any ST elevation. She does have a left bundle branch block which is old Likely elevated troponin secondary to septic shock and DARRYN Continue medical management with aspirin statin and resume beta-roxanne when hemodynamics allow (10) Diet-controlled type 2 diabetes mellitus: Code(s): E11.9 - Type 2 diabetes mellitus without complications Status: Acute Assessment and Plan: Patient has history of diabetes mellitus with currently not on any treatment as an outpatient. She states that her diabetes improved and she came of her medication many years ago. Currently her blood sugars have been elevated in the hospital which could be secondary to stress or hydrocortisone. She was started on insulin infusion and now has been transition to subcutaneous insulin and diabetic diet Monitor blood glucose a
--- NOTE | 2023-04-19 11:20 | PC.NURSE ---
This patient, Nicky Kuo, was transferred to [303] on 04/19/23 at 1120. Personal belongings sent with patient. Report given to [Steven VANCE]. Appropriate documentation sent with patient.
[2023-04-19 11:43] LABS: Glucose Point of Care 119 mg/dl (65-105)
--- NOTE | 2023-04-19 13:12 | PM.IMPN ---
Progress Note: A&P Assessment and Plan (1) Septic shock: Code(s): A41.9 - Sepsis, unspecified organism; R65.21 - Severe sepsis with septic shock Status: Acute Assessment and Plan: Patient presents with shivering and found to have lactic acidosis and HoTN from septic shock from UTI and emphysematous pyelitis CTA Ch/A/P showing emphysematous pyelitis and probably pyelonephritis of right kidney Urology consulted and patient taken to OR 04/17 and had cystoscopy and right ureteral stent placement. There was debris in the renal pelvis but no discrete filling defect. Patient received appropriate fluid resuscitation and now fluids stopped due to possible fluid overload Started on Levophed and vasopressin to improved HoTN. And Albumin and stress dose hydrocortisone added Cultures collected and Rocephin and Meropenem added. Rocephin since stopped. MRSA swab negative. WBC 13K. Lactic 4.3, CRP 6.6. BCx growing EColi in both bottles that is decker-sensitive UCx growing EColi with similar sensitivity pattern WBC up to 33K but better now Able to wean pressors. Soul-Cortef stopped. Narrow abx to Rocephin Wean off midodrine. Okay to move out of ICU (2) Encephalopathy: Code(s): G93.40 - Encephalopathy, unspecified Status: Acute Assessment and Plan: Likely metabolic encephalopathy. Patient was awake, alert but not oriented. She has nonfocal exam TSH normal. No imaging but felt related to infection. Holding sedatives Mental status improved. Start PT/OT Monitor (3) DARRYN (acute kidney injury): Code(s): N17.9 - Acute kidney failure, unspecified Status: Acute Assessment and Plan: DARRYN secondary to septic shock, pyelonephritis, diuretic meds and kidney stone Cr peaked at 1.6 and already trending down. Patient was on IV fluids but now stopped Monitor urine output, electrolytes and renal function (4) Congestive heart failure: Code(s): I50.9 - Heart failure, unspecified Status: Acute Assessment and Plan: Patient has history of diastolic dysfunction. BNP 84477 CTA chest showing mild dependent atelectasis CXR showing mild infiltrate or atelectasis in the bases. Echo showing EF 55-60%, septal WM abnormalities related to BBB, Grade I DD and mild MR. Concern for fluid overload so IV fluids held; felt patient had acute/chronic diastolic CHF. On supplemental oxygen but weaning off easily Follow (5) Elevated troponin: Code(s): R79.89 - Other specified abnormal findings of blood chemistry Status: Acute Assessment and Plan: Troponin noted to be elevated 0.2. EKG showing NSR with left BBB. The BBB is old. Echo as above. [place] related to septic shock. Continue ASA and statin. Add back metoprolol when able. (6) Emphysematous pyelitis: Code(s): N12 - Tubulo-interstitial nephritis, not specified as acute or chronic Status: Acute Assessment and Plan: Urology following. Stent was placed 04/17.? Will need repeat imaging with CT scan before discharge See above. (7) CAD (coronary artery disease), autologous vein bypass graft: Code(s): I25.810 - Atherosclerosis of coronary artery bypass graft(s) without angina pectoris Status: Acute Assessment and Plan: History of coronary disease status post CABG. Continue aspirin and statin (8) Fungal skin infection: Code(s): B36.9 - Superficial mycosis, unspecified Status: Acute Assessment and Plan: Urology noted patient has an extensive groin/vaginal yeast infection. She was started on fluconazole (9) Diet-controlled type 2 diabetes mellitus: Code(s): E11.9 - Type 2 diabetes mellitus without complications Status: Acute Assessment and Plan: A1c 6.8. Patient has diet-controlled DM. The patient's blood glucose was reviewed on 04/19 Patient was started on insulin drip due to severe hyperglycemia related to steroids. Glucose better co
[2023-04-19 16:33] LABS: Glucose Point of Care 94 mg/dl (65-105)
[2023-04-19] MEDS: MIDODRINE HCL 2.5 MG TABLET 5 MG PO (17:19)
[2023-04-19] MEDS: NEOMYCIN/POLYMYXIN/BACITRACIN OINTMENT PACKET 1 PACKET (18:10)
[2023-04-19 20:33] LABS: Glucose Point of Care 98 mg/dl (65-105)
[2023-04-20 04:55] VITALS: BP 114/74; PULSE 73; RESP 20; TEMP 36.5; O2SAT 91
[2023-04-20 06:12] LABS: Hematocrit 34.6 % (37.0-47.0); Hemoglobin 11.4 g/dL (12.0-15.0); Mean Corpuscular HGB Conc 32.9 g/dl (32-36); Mean Corpuscular Hemoglobin 31.3 pg (26-34); Mean Corpuscular Volume 95.1 fl (80-100); Platelet Count Result 144 k/mm3 (150-375); Red Blood Count 3.64 M/mm3 (4.2-5.4); Red Cell Distribution Width 13.1 % (11.5-14.5); White Blood Count 14.1 K/mm3 (4.5-10.0)
[2023-04-20 06:35] LABS: Alanine Aminotransferase 68 U/L (6-35); Alkaline Phosphatase 121 U/L (38-126); Anion Gap 7 mmol/L (8-16); Aspartate Amino Transferase 44 U/L (14-36); Bilirubin,Total 0.8 mg/dL (0.2-1.3); Blood Urea Nitrogen 30 mg/dL (7-17); Calcium 8.5 mg/dL (8.4-10.2); Carbon Dioxide 25 mmol/L (22-30); Chloride 107 mmol/L (98-107); Estimated CRCL calculation 43 ml/min; Estimated Glomerular Filt Rate > 60; Glucose 58 mg/dL (65-110); Potassium 3.2 mmol/L (3.4-5.0); Sodium 139 mmol/L (137-145)
[2023-04-20 06:40] LABS: Glucose Point of Care 55 mg/dl (65-105)
[2023-04-20] MEDS: DEXTROSE 50% 25 GM/50 ML SYRINGE IV PUSH (06:40)
--- NOTE | 2023-04-20 06:50 | PC.NURSE ---
Lab called with critical BS of 58. Medical Billing And Coding Specialist did poc accu check and resulted in 55. Medical Billing And Coding Specialist offered pt juice, but patient was unable to drink more than a few sips. Medical Billing And Coding Specialist administered IV 50% glucose 12.5 g IV. Will recheck BS in 15 mins
[2023-04-20 07:06] LABS: Glucose Point of Care 154 mg/dl (65-105)
[2023-04-20 07:58] LABS: Glucose Point of Care 132 mg/dl (65-105)
[2023-04-20 08:55] VITALS: O2SAT 95
[2023-04-20] MEDS: MONTELUKAST SODIUM 10 MG TABLET PO (10:22)
[2023-04-20] MEDS: POTASSIUM CHLORIDE 20 MEQ ER TABLET 40 MEQ PO (10:22)
[2023-04-20] MEDS: ENOXAPARIN 30 MG/0.3 ML SYRINGE SUB-Q (10:23)
[2023-04-20] MEDS: PANTOPRAZOLE 40 MG TABLET PO (10:23)
[2023-04-20] MEDS: cefTRIAXone 2 GM/NS 100 ML 2 GM/100 ML BAG IVPB (10:23)
[2023-04-20] MEDS: ASPIRIN 81 MG ENTERIC TABLET PO (10:23)
[2023-04-20] MEDS: ATORVASTATIN 10 MG TABLET PO (10:23)
--- NOTE | 2023-04-20 11:06 | PM.IMPN ---
Progress Note: A&P Assessment and Plan (1) Septic shock: Code(s): A41.9 - Sepsis, unspecified organism; R65.21 - Severe sepsis with septic shock Status: Acute Assessment and Plan: Patient presents with shivering and found to have lactic acidosis and HoTN from septic shock from UTI and emphysematous pyelitis CTA Ch/A/P showing emphysematous pyelitis and probably pyelonephritis of right kidney Urology consulted and patient taken to OR 04/17 and had cystoscopy and right ureteral stent placement. There was debris in the renal pelvis but no discrete filling defect. Patient received appropriate fluid resuscitation and fluids stopped due to possible fluid overload Started on Levophed and vasopressin to improved HoTN. Albumin and stress dose hydrocortisone added Cultures collected and Rocephin started but changed to Meropenem MRSA swab negative. WBC 13K. Lactic 4.3, CRP 6.6. BCx growing EColi in both bottles that is decker-sensitive UCx growing EColi with similar sensitivity pattern Able to be weaned off pressors. Soul-Cortef stopped. Abx narrowed to Rocephin (Abx day 4) LFTs trending down. WBC up to 33K but better now Wean off midodrine today. Okay for discharge when SNF arranged (2) Emphysematous pyelitis: Code(s): N12 - Tubulo-interstitial nephritis, not specified as acute or chronic Status: Acute Assessment and Plan: CTA Ch/A/P showing emphysematous pyelitis and probably pyelonephritis of right kidney Urology consulted and patient taken to OR 04/17 and had cystoscopy and right ureteral stent placement. There was debris in the renal pelvis but no discrete filling defect. Urology following. Repeat imaging with CT scan 04/19 showing debris and stones in the right renal pelvis. Stent in place. Dilated GB but no pain to suggest acute cholecystitis. Monitor clinically. Check RUQ US See above. (3) Encephalopathy: Code(s): G93.40 - Encephalopathy, unspecified Status: Acute Assessment and Plan: Likely metabolic encephalopathy. Patient was awake, alert but not oriented. She has nonfocal exam TSH normal. No imaging but felt related to infection. Holding sedatives Mental status improved. Continue PT/OT Monitor (4) DARRYN (acute kidney injury): Code(s): N17.9 - Acute kidney failure, unspecified Status: Acute Assessment and Plan: DARRYN secondary to septic shock, pyelonephritis, diuretic meds and kidney stone Cr peaked at 1.6 and already trending down. Patient was on IV fluids but now stopped Monitor urine output, electrolytes and renal function (5) Congestive heart failure: Code(s): I50.9 - Heart failure, unspecified Status: Acute Assessment and Plan: Patient has history of diastolic dysfunction. BNP 78412 CTA chest showing mild dependent atelectasis CXR showing mild infiltrate or atelectasis in the bases. Echo showing EF 55-60%, septal WM abnormalities related to BBB, Grade I DD and mild MR. Concern for fluid overload so IV fluids held; felt patient had acute/chronic diastolic CHF. On supplemental oxygen but weaned off easily Follow (6) Elevated troponin: Code(s): R79.89 - Other specified abnormal findings of blood chemistry Status: Acute Assessment and Plan: Troponin noted to be elevated 0.2. EKG showing NSR with left BBB. The BBB is old. Echo as above. [place] related to septic shock. Continue ASA and statin. Add back metoprolol when able. (7) CAD (coronary artery disease), autologous vein bypass graft: Code(s): I25.810 - Atherosclerosis of coronary artery bypass graft(s) without angina pectoris Status: Acute Assessment and Plan: History of coronary disease status post CABG. Continue aspirin and statin (8) Fungal skin infection: Code(s): B36.9 - Superficial mycosis, unspecified Status: Acute Assessment and Plan: Urology noted patient has an extensive groin/vaginal yeas
[2023-04-20 11:56] LABS: Glucose Point of Care 136 mg/dl (65-105)
[2023-04-20 13:56] VITALS: BP 94/67; PULSE 75; RESP 20; TEMP 35.7; O2SAT 94
[2023-04-20 16:00] VITALS: BP 136/54; PULSE 72; RESP 14; TEMP 36.3; O2SAT 100
[2023-04-20 17:15] LABS: Glucose Point of Care 116 mg/dl (65-105)
[2023-04-20 20:25] VITALS: BP 110/78; PULSE 74; RESP 16; TEMP 36.6; O2SAT 94
[2023-04-20 20:48] LABS: Glucose Point of Care 109 mg/dl (65-105)
[2023-04-20] MEDS: MICONAZOLE NITRATE 2% VAGINAL CREAM 45 GM TUBE 1 APPFUL VAGINAL (21:08)
[2023-04-21 05:30] VITALS: BP 117/75; PULSE 72; RESP 20; TEMP 35.7; O2SAT 94
[2023-04-21] MEDS: AMOXICILLIN/CLAVULANATE K 875-125 MG TAB 1 TABLET PO (05:34)
[2023-04-21 06:43] LABS: Alanine Aminotransferase 59 U/L (6-35); Alkaline Phosphatase 109 U/L (38-126); Anion Gap 6 mmol/L (8-16); Aspartate Amino Transferase 36 U/L (14-36); Blood Urea Nitrogen 25 mg/dL (7-17); Calcium 8.4 mg/dL (8.4-10.2); Carbon Dioxide 26 mmol/L (22-30); Chloride 106 mmol/L (98-107); Estimated CRCL calculation 48 ml/min; Estimated Glomerular Filt Rate > 60; Glucose 119 mg/dL (65-110); Magnesium 1.9 mg/dL (1.6-2.3); Sodium 138 mmol/L (137-145)
[2023-04-21 06:57] LABS: Hematocrit 35.8 % (37.0-47.0); Hemoglobin 11.8 g/dL (12.0-15.0); Mean Corpuscular Hemoglobin 31.3 pg (26-34); Mean Platelet Volume 11.1 fl (7.4-10.4); Platelet Count Result 160 k/mm3 (150-375); Red Blood Count 3.77 M/mm3 (4.2-5.4); White Blood Count 11.8 K/mm3 (4.5-10.0)
[2023-04-21] MEDS: ASPIRIN 81 MG ENTERIC TABLET PO (08:06)
[2023-04-21] MEDS: ATORVASTATIN 10 MG TABLET PO (08:06)
[2023-04-21] MEDS: PANTOPRAZOLE 40 MG TABLET PO (08:06)
[2023-04-21] MEDS: MONTELUKAST SODIUM 10 MG TABLET PO (08:06)
[2023-04-21] MEDS: ENOXAPARIN 30 MG/0.3 ML SYRINGE SUB-Q (08:06)
[2023-04-21 08:10] LABS: Glucose Point of Care 100 mg/dl (65-105)
--- NOTE | 2023-04-21 08:42 | PM.IMPN ---
Progress Note: A&P Assessment and Plan (1) Septic shock: Code(s): A41.9 - Sepsis, unspecified organism; R65.21 - Severe sepsis with septic shock Status: Acute Assessment and Plan: Patient presents with shivering and found to have lactic acidosis and HoTN from septic shock from UTI and emphysematous pyelitis CTA Ch/A/P showing emphysematous pyelitis and probably pyelonephritis of right kidney Urology consulted and patient taken to OR 04/17 and had cystoscopy and right ureteral stent placement. There was debris in the renal pelvis but no discrete filling defect. Patient received appropriate fluid resuscitation and fluids stopped due to possible fluid overload Started on Levophed and vasopressin to improved HoTN. Albumin and stress dose hydrocortisone added Cultures collected and Rocephin started but changed to Meropenem MRSA swab negative. WBC 13K. Lactic 4.3, CRP 6.6. BCx growing EColi in both bottles that is decker-sensitive UCx growing EColi with similar sensitivity pattern Able to be weaned off pressors. Soul-Cortef stopped. Abx narrowed to Rocephin (Abx day 4) LFTs trending down. WBC up to 33K but better now Wean off midodrine, hold home antihypertensive Okay for discharge when SNF arranged (2) Emphysematous pyelitis: Code(s): N12 - Tubulo-interstitial nephritis, not specified as acute or chronic Status: Acute Assessment and Plan: CTA Ch/A/P showing emphysematous pyelitis and probably pyelonephritis of right kidney Urology consulted and patient taken to OR 04/17 and had cystoscopy and right ureteral stent placement. There was debris in the renal pelvis but no discrete filling defect. Urology following. Repeat imaging with CT scan 04/19 showing debris and stones in the right renal pelvis. Stent in place. Dilated GB but no pain to suggest acute cholecystitis. Monitor clinically. RUQ US 04/20 showed cholelithiasis without cholecystitis See above. (3) Encephalopathy: Code(s): G93.40 - Encephalopathy, unspecified Status: Acute Assessment and Plan: Likely metabolic encephalopathy. Patient was awake, alert but not oriented. She has nonfocal exam TSH normal. No imaging but felt related to infection. Holding sedatives Mental status improved. Continue PT/OT Monitor (4) DARRYN (acute kidney injury): Code(s): N17.9 - Acute kidney failure, unspecified Status: Acute Assessment and Plan: DARRYN secondary to septic shock, pyelonephritis, diuretic meds and kidney stone Cr peaked at 1.6 and already trending down. Patient was on IV fluids but now stopped Monitor urine output, electrolytes and renal function Resolved (5) Congestive heart failure: Code(s): I50.9 - Heart failure, unspecified Status: Acute Assessment and Plan: Patient has history of diastolic dysfunction. BNP 61149 CTA chest showing mild dependent atelectasis CXR showing mild infiltrate or atelectasis in the bases. Echo showing EF 55-60%, septal WM abnormalities related to BBB, Grade I DD and mild MR. Concern for fluid overload so IV fluids held; felt patient had acute/chronic diastolic CHF. On supplemental oxygen but weaned off easily Follow (6) Elevated troponin: Code(s): R79.89 - Other specified abnormal findings of blood chemistry Status: Acute Assessment and Plan: Troponin noted to be elevated 0.2. EKG showing NSR with left BBB. The BBB is old. Echo as above. [place] related to septic shock. Continue ASA and statin. Add back metoprolol when able. (7) CAD (coronary artery disease), autologous vein bypass graft: Code(s): I25.810 - Atherosclerosis of coronary artery bypass graft(s) without angina pectoris Status: Acute Assessment and Plan: History of coronary disease status post CABG. Continue aspirin and statin (8) Fungal skin infection: Code(s): B36.9 - Superficial mycosis, unspecified Status: Acute Asses
[2023-04-21] MEDS: polyethylene glycoL 3350 17 GM POWD.PACK PO (10:31)
[2023-04-21 11:28] LABS: SARS-CoV-2 RNA PCR Negative (Negative)
[2023-04-21 11:51] LABS: Glucose Point of Care 145 mg/dl (65-105)
--- NOTE | 2023-04-21 12:24 | PM.DS ---
DS: Admitting Diagnosis Discharge Date 04/21/23 Admitting Diagnosis Malaise DS: Discharge Diagnosis Discharge Diagnosis (1) Septic shock: Code(s): A41.9 - Sepsis, unspecified organism; R65.21 - Severe sepsis with septic shock Status: Acute Assessment and Plan: Patient presents with shivering and found to have lactic acidosis and HoTN from septic shock from UTI and emphysematous pyelitis CTA Ch/A/P showing emphysematous pyelitis and probably pyelonephritis of right kidney Urology consulted and patient taken to OR 04/17 and had cystoscopy and right ureteral stent placement. There was debris in the renal pelvis but no discrete filling defect. Patient received appropriate fluid resuscitation and fluids stopped due to possible fluid overload Started on Levophed and vasopressin to improved HoTN. Albumin and stress dose hydrocortisone added Cultures collected and Rocephin started but changed to Meropenem MRSA swab negative. WBC 13K. Lactic 4.3, CRP 6.6. BCx growing EColi in both bottles that is decker-sensitive UCx growing EColi with similar sensitivity pattern Able to be weaned off pressors. Soul-Cortef stopped. Abx narrowed to Rocephin (Abx day 4) LFTs trending down. WBC up to 33K but better now Wean off midodrine, hold home antihypertensive Okay for discharge when SNF arranged (2) Emphysematous pyelitis: Code(s): N12 - Tubulo-interstitial nephritis, not specified as acute or chronic Status: Acute Assessment and Plan: CTA Ch/A/P showing emphysematous pyelitis and probably pyelonephritis of right kidney Urology consulted and patient taken to OR 04/17 and had cystoscopy and right ureteral stent placement. There was debris in the renal pelvis but no discrete filling defect. Urology following. Repeat imaging with CT scan 04/19 showing debris and stones in the right renal pelvis. Stent in place. Dilated GB but no pain to suggest acute cholecystitis. Monitor clinically. RUQ US 04/20 showed cholelithiasis without cholecystitis See above. (3) Encephalopathy: Code(s): G93.40 - Encephalopathy, unspecified Status: Acute Assessment and Plan: Likely metabolic encephalopathy. Patient was awake, alert but not oriented. She has nonfocal exam TSH normal. No imaging but felt related to infection. Holding sedatives Mental status improved. Continue PT/OT Monitor (4) DARRYN (acute kidney injury): Code(s): N17.9 - Acute kidney failure, unspecified Status: Acute Assessment and Plan: DARRYN secondary to septic shock, pyelonephritis, diuretic meds and kidney stone Cr peaked at 1.6 and already trending down. Patient was on IV fluids but now stopped Monitor urine output, electrolytes and renal function Resolved (5) Congestive heart failure: Code(s): I50.9 - Heart failure, unspecified Status: Acute Assessment and Plan: Patient has history of diastolic dysfunction. BNP 47920 CTA chest showing mild dependent atelectasis CXR showing mild infiltrate or atelectasis in the bases. Echo showing EF 55-60%, septal WM abnormalities related to BBB, Grade I DD and mild MR. Concern for fluid overload so IV fluids held; felt patient had acute/chronic diastolic CHF. On supplemental oxygen but weaned off easily Follow (6) Elevated troponin: Code(s): R79.89 - Other specified abnormal findings of blood chemistry Status: Acute Assessment and Plan: Troponin noted to be elevated 0.2. EKG showing NSR with left BBB. The BBB is old. Echo as above. [place] related to septic shock. Continue ASA and statin. Add back metoprolol when able. (7) CAD (coronary artery disease), autologous vein bypass graft: Code(s): I25.810 - Atherosclerosis of coronary artery bypass graft(s) without angina pectoris Status: Acute Assessment and Plan: History of coronary disease status post CABG. Continue aspirin and statin (8) Fungal skin infection:
--- NOTE | 2023-06-10 09:23 | WPDHPUPDATE1 ---
History and Physical Update Update Date/Time: 04/17/23 time 0044 Patient in pre op, Full consult note completed. History and Physical has been reviewed, including an updated exam of the patient. There are NO changes in the patient's condition. She is needing an emergent stent placed with Urosepsis Risks, benefits, and alternatives have been discussed and questions answered. Patient agrees to proceed with procedure.
== END 2023-04-21 12:30 | DRG 853 ==
LOC: ANHED 04-17 01:27 → ANHICU 04-17 02:47 → ANH3MEDSUR 04-19 11:31
PROVIDERS: Internal Medicine; Urology; Admitting Provider Internal Medicine; Emergency Provider Student in an Organized Health Care Education/Training Program; PCP Internal Medicine; Visit Provider Student in an Organized Health Care Education/Training Program
PROC: 0T768DZ Dilation of Right Ureter with Intraluminal Device, Via Natural or Artificial Opening Endoscopic (ICD-10-PCS; CPT 52352; principal; 2023-04-17 00:45)
DX: A41.51 Sepsis due to Escherichia coli [E. coli] (principal); G93.41 Metabolic encephalopathy; R65.21 Severe sepsis with septic shock; I50.33 Acute on chronic diastolic (congestive) heart failure; N13.6 Pyonephrosis; I25.810 Atherosclerosis of coronary artery bypass graft(s) without angina pectoris; N17.9 Acute kidney failure, unspecified; D64.9 Anemia, unspecified; E11.9 Type 2 diabetes mellitus without complications; E87.6 Hypokalemia; E78.5 Hyperlipidemia, unspecified; K80.20 Calculus of gallbladder without cholecystitis without obstruction; R79.89 Other specified abnormal findings of blood chemistry; I44.7 Left bundle-branch block, unspecified; I65.29 Occlusion and stenosis of unspecified carotid artery; I71.21 Aneurysm of the ascending aorta, without rupture; D69.59 Other secondary thrombocytopenia; R32 Unspecified urinary incontinence; I25.5 Ischemic cardiomyopathy; B37.2 Candidiasis of skin and nail; B37.31 Acute candidiasis of vulva and vagina; Z95.1 Presence of aortocoronary bypass graft; Z11.52 Encounter for screening for COVID-19
CPT/HCPCS: 36415; 71045; 71275; 74174; 74176; 74420; 76705; 80048; 80053; 80076; 81001; 82948; 83036; 83605; 83690; 83735; 83880; 84443; 84484; 85025; 85027; 85055; 85380; 85610; 85730; 86140; 86850; 86900; 86901; 87040; 87077; 87086; 87088; 87186; 87635; 87641; 93005; 93306; 96365; 96367; 97110; 97116; 97161; 97165; 97530; 97535; 99285; A9270; C1751; C1758; C1769; C2617; C9113; J0696; J1450; J1650; J1720; J1815; J2185; J2405; J2704; J3480; J7030; J7120; P9047; Q9966; Q9967

== ENCOUNTER 2023-06-10 09:12 | Outpatient (CLI) | payer MEDICARE, SELFPAY ==
[2023-06-10 10:28] LABS: Cholesterol 179 mg/dL (0-200); HDL Direct 55 mg/dL (40-60); LDL Cholesterol Calculated 109 mg/dL (<130); Triglycerides 74 mg/dL (0-150)
== END 2023-06-10 09:13 | disposition home or self-care (01) ==
LOC: CHSLAB 09:14
PROVIDERS: PCP Internal Medicine; Visit Provider Internal Medicine Cardiovascular Disease
DX: E78.5 Hyperlipidemia, unspecified (principal)
CPT/HCPCS: 36415; 80061

== ENCOUNTER 2024-07-24 12:17 | Outpatient (CLI) | payer MEDICARE, OTHER, SELFPAY ==
--- NOTE | ~2024-07-24 | US_ITS ---
EXAMINATION: US carotid duplex BI DATE: 07/24/2024 12:42 INDICATION: Carotid artery stenosis TECHNIQUE: Grayscale, color Doppler, and pulsed Doppler images of the cervical carotid arteries were obtained. The degree of vessel stenosis is placed in one of the following categories: normal, <50%, 5 0-69%, >=70% but less than near-occlusion, near-occlusion, or total occlusion. Note that percent sten osis relative to normal distal artery lumen diameter is indirectly measured from velocity measurement s as described by Richard, et al. Radiology 2003; 229:340-346. COMPARISON: 06/25/2022 FINDINGS: RIGHT: The right common carotid artery (CCA) peak systolic velocity (PSV) is 82 cm/s. The right internal car otid artery (ICA) PSV is 77 cm/s. The right ICA end-diastolic velocity (EDV) is 29 cm/s. The right IC A/CCA PSV ratio is 0.9. Grayscale and color Doppler images yield an estimate of <50% diameter reducti on from plaque in the ICA. The external carotid artery (ECA) PSV is 82 cm/s. The distal right interna l carotid artery is tortuous. There is antegrade flow in the right vertebral artery. LEFT: The left CCA PSV is 67 cm/s. The left ICA PSV is 85 cm/s. The left ICA EDV is 33 cm/s. The left ICA/C CA PSV ratio is 1.3. Grayscale and color Doppler images yield an estimate of <50% diameter reduction from plaque in the ICA. The distal left internal carotid artery is tortuous. The ECA PSV is 89 cm/s. There is antegrade flow in the left vertebral artery. IMPRESSION: 1. <50% stenosis in the right internal carotid artery. 2. <50% stenosis in the left internal carotid artery. Reviewed, dictated and finalized at location B.
--- OUTSIDE RECORDS SUMMARY | 2024-07-24 13:59 | XMS_ITS | Encounter Summary ---
Author Organization [facility] Address [address] [place] [address] Care Team Providers Care Brass Wind Instrument Maker Name Role Phone Apolinar Rosales MD Primary Care Provider [phone] Encounter Details Date Type Department Care Team (Late st Contact Info) Description 07/02/2016 Orders Only [facility] ProviderEllie MD [place] [address] Social History Tobacco Use Types Packs/Day Years Used Date Smoking Tobacco: Never Alcohol Use Standard Drinks/Week Comments No 0 (1 standard drink = 0.6 oz pur e alcohol) Comments Unknown Sex and Gender Information Value Date Recorded Sex Assigned at Not on file 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 Historical Provider [facility] MARY MATHIS Final Result documented in this encounter Visit Diagnoses Not on filedocumented in this encounter Care Teams Brass Wind Instrument Maker Relationship Specialty Start Date End Date Apolinar Rosales MD PCP - General 06/26/16 documented as of this encounter
--- OUTSIDE RECORDS SUMMARY | 2024-07-24 13:59 | XMS_ITS | Continuity of Care Document ---
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 Name Role Phone John OD OD, Lelo Unavailable Unavai lable Allergies, Adverse Reactions, Alerts Substance Reaction Status Criticality No Known Allergies Active No Inform ation Medications Medication Instructions Dosage Effective Dates (start - stop) Status Comments iron 325 mg (65 mg iron) tablet take 1 tablet by oral route every day 325 MG - Active Aspir-81 81 mg tablet,delayed release take 1 tablet by oral route every day - Active Multiple Vitamins tablet take 1 tablet by oral route every day with food - Active METOPROLOL SUCCINATE (unknown strength) take 1 tablet by oral route every day Not Available - Active econazole 1 % topical cream apply by topical route 2 times every day to the affected and surrounding areas of skin 0.00 - Active MONTELUKAST SODIUM (unknown strength) take 1 tablet by oral route every day in the evening Not Available - Active SPIRONOLACTONE (unknown strength) take 1 tablet by oral route every day Not Available - Active VITAMIN D2 (unknown strength) take 1 capsule by oral route every week Not Available - Active atorvastatin (unknown strength) Not Available - Active Procedures Procedure Date OFFICE/OUTPATIENT VISIT, EST OFFICE/OUTPATIENT VISIT, EST OPSCPY EXTND RTA DRAW UNI/BI OFFICE/OUTPATIENT VISIT, EST EYE EXAM & TREATMENT OFFICE/OUTPATIENT VISIT, EST OPSCPY EXTND RTA DRAW UNI/BI OFFICE/OUTPATIENT VISIT, EST EYE EXAM & TREATMENT POSTOP FOLLOW-UP VISIT REVISION OF UPPER EYELID EYE EXAM, NEW PATIENT VISUAL FIELD EXAMINATION(S) EYE PHOTOGRAPHY OFFICE/OUTPATIENT VISIT, NEW DILATED EXAM RIGHT EYE DILATED EXAM LEFT EYE Advance Directives Directive Yes / No Effective Date File Name No Information Encounters Encounter Description Practice Location Reason(s) For Visit Diagnoses Date Provider Providers Copied on Encounter OFFICE/OUTPA TIENT VISIT, EST [facility], [address] [place] [address], [id number], tel:[phone] OPH CONSULT KELLY LUQUE DM II (chief complaint) Dry eye syndrome of bilateral lacrimal glandsPVD (posterior vitreous detachment), bilateralAge- related nuclear cataract, bilateralPred iabetes Nov-0 6-202 4 Derheimer OD Lelo. [address], [address], [place], [place], [id number], [place]. tel:[phone] Referring Provider: Apolinar Rosales MD, [address] [place], [address]. tel:[phone] OFFICE/OUTPA TIENT VISIT, EST [facility], [address] [place] [address], [place], [place], [id number], [place] tel:[phone] OPH CONSULT KELLY LUQUE DM II (chief complaint) PrediabetesAg e-related nuclear cataract, bilateralPVD (posterior vitreous detachment), bilateralDry eye syndrome of bilateral lacrimal glands 0-202 3 Derheimer OD Lelo. [address], [address], [place], [place], [id number], [place]. tel:[phone] Referring Provider: Apolinar Rosales MD, [address] [place], [address]. tel:[phone] OFFICE/OUTPA TIENT VISIT, EST [facility], [address] [place] [address], [id number], tel:[phone] OPH CONSULT KELLY LUQUE Type II DM (chief complaint) Age-related nuclear cataract, bilateralDry eye syndrome of bilateral lacrimal glandsPresbyo piaPrediabete sPVD (posterior vitreous detachment), bilateral 2 Derheimer OD Lelo. [address], [place], [place], [id number], [place]. tel:[phone] Referring Provider: Apolinar Rosales MD, [address] [place], [address]. tel:[phone] [facility], [address] [place] [address], [id number], [place] tel:[phone] OPH CONSULT KELLY LUQUE DM II (chief complaint) Type 2 diabetes mellitus without complications Age-related nuclear cataract, bilateralDry eye syndrome of bilateral lacrimal glandsHyperte nsionPresbyop ia 1 Miguel Saavedra. [address], [place], [address], [place]. tel:[phone] Referring Provider: REX DAMON MD, [address], [place], [address]. tel:[phone] OFFICE/OUTPA TIENT VISIT, EST [facility], [address] [place] [address], [id number], [place] tel:[phone] OPH CONSULT [facility] cataract check (chief complaint) Type 2 diabetes mellitus without complications HypertensionD ry eye syndrome of bilateral lacrimal glandsVitreou s degeneration, bilateralAge- related nuclear cataract, bilateral 0 Derheimer OD Lelo. [address], [address], [place], [place], [id number], [place]. tel:[phone] Referring Provider: REX DAMON MD, [address], [place], [address]. tel:[phone] OFFICE/OUTPA TIENT VISIT, EST [facility], [address] [place] [address], [id number], [place] tel:[phone] OPH CONSULT KELLY LUQUE cataract check (chief complaint) Type 2 diabetes mellitus without complications HypertensionD ry eye syndrome of bilateral lacrimal glandsVitreou s degeneration, bilateralAge- related nuclear cataract, bilateral Jun- 8 John OD Lelo. [address], [place], [place], [id number], [place]. tel:[phone] Referring Provider: Lelo Schmittberlin OD, [address] [address], [place], [address]. tel:[phone] [facility], [address] [place] [address], [id number], [place] tel:[phone] Oph Consult [facility] Diabetic exam (chief complaint) Age-related nuclear cataract, bilateralType 2 diabetes mellitus without complications Other vitreous opacities, left eyeVitreous degeneration, right eyeTear film insufficiency , unspecifiedHy pertensionS/P blepharoplast y 7 [facility]. [address] [place] [address], [address], [place], [address], [place]. tel:[phone] Referring Provider: Lelo Schmittberlin OD, [address] [address] [facility] [address], [place], [address]. tel:[phone] [facility], [address] [place] [address], [id number], [place] tel:[phone] OPH CONSULT KELLY LUQUE no complaints OU (chief complaint) No Information 6 Wale Gregorio. [address] [place] [address], [place] [address], [place], [address], [place]. tel:[phone] Referring Provider: Jg Real, [address] [place] [address] [address], [place], [address]. tel:[phone] [facility], [address] [place] [address], [id number], [place] tel:[phone] [facility] [place] No Information 0 6 Wale Gregorio. [address] [place] [address], [address], [address], [place]. tel:[phone] Referring Provider: Jg Real, [address] [facility] [address], [place], [address]. tel:[phone] [facility], [address] [place] [address], [place], [place], [id number], [place] tel:[phone] OPH CONSULT KELLY LUQUE Lid Evaluation (chief complaint) Dermatochalas is of left upper eyelidDermato chalasis of right upper eyelidFloppy eyelid syndromeAge-r elated nuclear cataract, bilateral Apr- 6 [place] [address] [facility], [address], [place], [address], [place]. tel:[phone] Referring Provider: Jg Real, [address] [facility] [address], [place], [address]. tel:[phone] OFFICE/OUTPA TIENT VISIT, [facility], [address] [place] [address], [place], [place], [id number], [place] tel:[phone] OPH CONSULT KELLY LUQUE Diabetic eye exam (chief complaint) HypertensionT ype 2 diabetes mellitus without complications Age-related nuclear cataract, bilateralTear film insufficiency , unspecifiedVi treous degeneration, right eyeOther vitreous opacities, left eyeDermatocha lasis of right upper eyelidDermato chalasis of left upper eyelid 5 Oskarheimer OD Lelo. [address], [place], [place], [id number], [place]. tel:[phone] Referring Provider: Lelo Lopez OD, [address], [place], [address]. tel:[phone] Family History Family Member Type Diagnosis Age At Onset Problem No family history of Macular degeneration Problem No family history of [place] a Payers Payer name Insurance type Covered republican ID Authorkavin soriano(s) [place]IC[place] MB [id number] [facility] CI [id number] Social History Type Description Quantity Date Captured Comments Alcohol Use Details No Caffeine Use Details No Tobacco Use Status Current non-smoker Sep-06-20 24 Smoking Status Never smoker Non-Smoking Tobacco Use Details : No Details Available : No Details Available Sex Female Vital Signs Date / Time: Height Weight BMI Pulse Rate Blood Pressure Temperature Respiratory Rate Body Surface Area Head Circumference Head Circ. Percentile Wt./Cm. Percentile BMI percentile Pulse Ox Inhaled Ox 12:15 PM 65.00 in 81.647 kg (180.00 lbs) 29.9 5 kg/m eter (2) Chief Complaint And Reason For Visit From encounter dated '12/03/2023 12:15'. DM II (chief complaint). Description: The 78 year old female presents for evaluation of DM II. pt states she is not diabetic anymore. pt vision is fine, no pain or discomfort, pt only wears OTC readers. does not take BSL and A1c anymore. Followed by Dr. Rosales Reason For Referral Reason For Referral No Information Plan Of Treatment Date Type Action Status Referral Referred To: Apolinar Rosales [address] [place] [address], [phone] Ordered: Referrals: Apolinar Rosales ordered History Of Present Illness Encounter Date Complaint History Of Prese nt Illness DM II The 78 year old female presents for evaluation of DM II. pt states she is not diabetic anymore. pt vision is fine, no pain or discomfort, pt only wears OTC readers. does not take BSL and A1c anymore. Followed by Dr. Rosales DM II The 77 year old female presents for evaluation of DM II per Dr. Rosales. Pt doesn't check BS at home, doesn't know last A1C. She denies any changes in vision since last visit, no new flashers or floaters. She denies any pain or irritation, not currently using any eyedrops. She feels like she is seeing fine just wearing readers. Type II DM The 76 year old female presents for a dilated exam. Patient reports vision OU seems good - stable since last exam. Denies FOL or floaters.Reports she doesn't check BS or know A1c - isn't on any diabetic medication. Has bloodwork periodically w/ Dr. Dr. Rosales.Wears reading glasses PRN. pt is s/p hernia repair / hysterectomy / uterine tumor removal / quadruple bypass DM II The 75 year old female presents for evaluation of DM II in the right eye and left eye. It started about 1 year(s) ago. The symptom is constant. The condition is stable. Followed by Dr. Eddie Rosales for diabetes. Last A1C unknown taken about a month ago and unknown BS unknown. Pt currently uses rx reading glasses and is happy w/ current vision. Pt rarely sees floaters and denies flashes of light. Pt has not been using any gtts. cataract check The 74 year old female presents for evaluation of cataract check in the right eye and left eye. It started about 2 year(s) ago. It occurs all the time. The condition is stable. Pt states no complaints/changes since last OV. Pt states she does not have diabetes anymore. cataract check The 72 year old female presents for evaluation of cataract check in the right eye and left eye. It started about 1 year(s) ago. The onset was gradual. It affects near vision. The symptom is constant. The condition is stable. Pt wears reading glasses for near. Diabetic exam The 71 year old female presents for evaluation of Diabetic exam in the right eye and left eye. It started about 1 year(s) ago. It affects OU. The symptom is constant. The condition is moderate. Pt presenst for a diabetic exam, pt is currently controlling BGL with diet. unsure of A1c. Followed by Dr. Richard no complaints no complaints OU Lid Evaluation The 70 year old female presents for a Lid Evaluation for BUL. Complains that VA is being limited due to extra skin laying over her lids covering her eyes. States that she has to pull up lids in order to see better. Eyes are stuck together in the morning and hard to pull open. Lids seem to be more bothersome as the day progresses and eyes become fatigued. Can see slightly better when she tilts her head back. Diabetic eye exam The 70 year ol d female presents for diabetic eye exam in the right eye and left eye. NIDDM x 2 months. Physician directed diabetic eye exam - followed by Dr. Damon. BS 98 today unsure HBA1c. Vision seems stable OU. Patient wears reading glasses only. Last eye exam at [facility] earlier this year. Functional Status Date Functional Assessmen t No Information Instructions Date Instruction Additional Infor laura Impression/Plan Related to Dry e ye syndrome of bilateral lacrimal glands Impression/Plan Related to Predi abetes Impression/Plan Related to PVD ( posterior vitreous detachment), bilateral Impression/Plan Related to Age-r elated nuclear cataract, bilateral Impression/Plan Related to Predi abetes Impression/Plan Related to Age-r elated nuclear cataract, bilateral Impression/Plan Related to PVD ( posterior vitreous detachment), bilateral Impression/Plan Related to Dry e ye syndrome of bilateral lacrimal glands Impression/Plan Related to PVD ( posterior vitreous detachment), bilateral Impression/Plan Related to Predi abetes Impression/Plan Related to Age-r elated nuclear cataract, bilateral Impression/Plan Related to Dry e ye syndrome of bilateral lacrimal glands Impression/Plan Related to Presb yopia Impression/Plan Related to Presb yopia Impression/Plan Related to Type 2 diabetes mellitus without complications Impression/Plan Related to Age-r elated nuclear cataract, bilateral Impression/Plan Related to Dry e ye syndrome of bilateral lacrimal glands Impression/Plan Related to Hyper tension Impression/Plan Related to Age-r elated nuclear cataract, bilateral Impression/Plan Related to Vitre ous degeneration, bilateral Impression/Plan Related to Dry e ye syndrome of bilateral lacrimal glands Impression/Plan Related to Hyper tension Impression/Plan Related to Type 2 diabetes mellitus without complications Impression/Plan Related to Age-r elated nuclear cataract, bilateral Impression/Plan Related to Vitre ous degeneration, bilateral Impression/Plan Related to Dry e ye syndrome of bilateral lacrimal glands Impression/Plan Related to Hyper tension Impression/Plan Related to Type 2 diabetes mellitus without complications Impression/Plan - No treatment currently recommended. The patient will monitor vision changes and contact us with any decrease in vision. Related to Age-related nuclear cataract, bilateral Impression/Plan - Di scussed diagnosis in detail with patient. No treatment is required at this time. Will continue to observe condition and or symptoms. Call if VA worsens or sudden onset of dozens of floaters with flashes of light. Discussed RD warnings. Related to Other vitreous opacities, left eye Impression/Plan - Th ere is no evidence of retinal pathology. All signs and risks of retinal detachment and tears were discussed in detail. Patient instructed to call the office immediately if any symptoms noted. Related to Vitreous degeneration, right eye Impression/Plan - Di scussed diagnosis in detail with patient. Discussed treatment options with patient. Patient instructed to use artificial tears as needed. Will continue to observe condition and or symptoms. Gave samples today Blink and Systane balance BID OU. Related to Tear film insufficiency, unspecified Impression/Plan - Co ntinue care with PCP. No evidence of hypertensive retinopathy. will continue to observe. Related to Hypertension Impression/Plan - St able. Continue to observe. Related to S/P blepharoplasty Impression/Plan - Di abetes type II: no background retinopathy, no signs of neovascularization noted. Discussed ocular and systemic benefits of blood sugar control. Related to Type 2 diabetes mellitus without complications Follow up - RTO 1 yr with KEENA Impression/Plan - Di scussed diagnosis in detail with patient. Will continue to observe condition and or symptoms. 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 Discussed treatment options with patient. Surgical risks and benefits were discussed, explained and understood by patient. Patient elects to have surgery. Schedule Bilateral Blepharoplasty Related to Dermatochalasis of right upper eyelid Impression/Plan - Di scussed diagnosis in detail with patient. Discussed treatment options with patient. Surgical risks and benefits were discussed, explained and understood by patient. Patient elects to have surgery. Schedule Bilateral Blepharoplasty Related to Dermatochalasis of left upper eyelid Impression/Plan - No treatment currently recommended. The patient will monitor vision changes and contact us with any decrease in vision. Related to Age-related nuclear cataract, bilateral Impression/Plan - No treatment currently recommended. The patient will monitor vision changes and contact us with any decrease in vision. Will continue to observe. Related to Age-related nuclear cataract, bilateral Impression/Plan - no background retinopathy, no signs of neovascularization noted. Discussed ocular and systemic benefits of blood sugar control.BS 98Patient is followed by Dr. Damon/ letter today Related to Type 2 diabetes mellitus without complications Impression/Plan - Co ntinue care with PCP. No evidence of hypertensive retinopathy. will continue to observe. Related to Hypertension Impression/Plan - Di scussed diagnosis in detail with patient. Discussed treatment options with patient. Patient instructed to use artificial tears as needed. Will continue to observe condition and or symptoms. Gave samples today Blink and Systane balance BID OU. Related to Tear film insufficiency, unspecified Impression/Plan - Th ere is no evidence of retinal pathology. All signs and risks of retinal detachment and tears were discussed in detail. Patient instructed to call the office immediately if any symptoms noted. Related to Vitreous degeneration, right eye Impression/Plan - Di scussed diagnosis in detail with patient. No treatment is required at this time. Will continue to observe condition and or symptoms. Call if VA worsens or sudden onset of dozens of floaters with flashes of light. Discussed RD warnings. Related to Other vitreous opacities, left eye Impression/Plan - Di scussed diagnosis in detail with patient. Discussed treatment options with patient. Will continue to observe condition and or symptoms. Ref to Dr. JOHN. for Lid eval. Related to Dermatochalasis of right upper eyelid Impression/Plan - Di scussed diagnosis in detail with patient. Discussed treatment options with patient. Will continue to observe condition and or symptoms. Ref to DORA for Lid eval. Related to Dermatochalasis of left upper eyelid Follow up - RTo 1 ye ar for diabetic exam Assessments Type Assessment Date assessment Dry eye syndrome of bilateral la crimal glands impression Dry eye syndrome of bilateral la crimal glands: H04.123 assessment PVD (posterior vitreous detachme nt), bilateral impression PVD (posterior vitreous detachme nt), bilateral: H43.813 assessment Age-related nuclear cataract, bi lateral assessment Prediabetes impression Prediabetes: R73.03. on no meds - Followed by Dr. Rosales - fax Patient Care Teams Name Effective Dates (start - stop) Status Members No Information
--- OUTSIDE RECORDS SUMMARY | 2024-07-24 13:59 | XMS_ITS ---
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 *General care. * Medical History: Objective: * Vitals: Assessment: Plan: * Treatment: * Billing Information: * Visit Code: * Procedure Codes: * Electronic signature of KATHLEEN RICE DPM on 07/24/2024 at 01:59 PM CDT Sign off status: Pending * Provider: Bao Rice DPM Date: 0 05/04/2024 Generated for [employer] cordova/Pradip/Ebensmitting on: 0 07/24/2024 01:59 PM CDT
--- OUTSIDE RECORDS SUMMARY | 2024-07-24 13:59 | XMS_ITS ---
Author Organization [facility] Address [address] [place], [place] [id number] Care Team Providers Care Body Design Checker Name Role Phone ARCELIA WILCOX Unavailable [phone] Apolinar Rosales Unavailable Unavailable OOKATHLEEN Herrmann Unavailable [phone] REASON FOR VISIT Patient presents for at-risk foot care . The patient has painful toenails that cause difficulty with ambulation and shoegear. The onset is gradual Medications Medication SIG (Take, Route, Frequency, Duration) Notes Start Date End Date Status mometasone furoate 1 MG/ML Topical Cream CUTANEOUS mometasone furoate 1 MG/ML Topical CreamOriginal Medicationmometasone furoate 1 MG/ML Topical Cream *Reorder from [employer] for eRx and Interaction Alerts* 08/12/19 17 Unknown cholecalciferol 0.025 MG Chewable Tablet ORAL cholecalciferol 0.025 MG Chewable TabletOriginal Medicationcholecalciferol 0.025 MG Chewable Tablet *Reorder from [employer] for eRx and Interaction Alerts* 08/12/19 17 Unknown aspirin 81 MG Delayed Release Oral Tablet ORAL aspirin 81 MG Delayed Releas e Oral TabletOriginal Medicationaspirin 81 MG Delayed Release Oral Tablet *Reorder from [employer] for eRx and Interaction Alerts* 08/12/19 17 Unknown Encounters Encounter Location Date Provider Diagnosis [address] [id number] 05/04/2024 KATHLEEN SNOOK Tinea unguium B35.1 ; Pain in right toe(s) M79.674 ; Pain in left toe(s) M79.675 and Atherosclerosis of [place] arteries of extremities with intermittent claudication, bilateral legs I70.213 Assessments Encounter Date Diagnosis (ICD Code) Assessment Notes Treatment Notes Treatment Clinical Notes Section Notes 05/04/2024 Tinea unguium (ICD-10 - B35.1) FUNGAL TOENAILS: Discussed various treatment options for fungal toenails including debridement, topical antifungals, oral antifungals, toenail avulsion, or toenail matrixectomy. NAIL DEBRIDEMENT: Nails 1-5 Bilateral were debrided extensively with nail nippers and emery board, reducing length and girth to pink healthy tissue with any subungual debris and necrotic tissue removed 05/04/2024 Pain in right toe(s) (ICD-10 - M79.674) 05/04/2024 Pain in left toe(s) (ICD-10 - M79.675) 05/04/2024 Atherosclerosis of [place] of extremities with intermittent claudication, bilateral legs (ICD-10 - I70.213) Plan Of Treatment Treatment Notes Assessment Notes Tinea unguium FUNGAL TOENAILS: Discussed various treatment options for fungal toenails including debridement, topical antifungals, oral antifungals, toenail avulsion, or toenail matrixectomy. NAIL DEBRIDEMENT: Nails 1-5 Bilateral were debrided extensively with nail nippers and emery board, reducing length and girth to pink healthy tissue with any subungual debris and necrotic tissue removed Next Appt Details Follow Up: 10-12 Weeks, Reas on: At Risk Foot care, sooner if problems arise Progress Notes * EL BUENROSTRO KDOB:[birth year] (79 yo F)Acc No.[id number]:05/04/2024 Patient: EL DELEON Provider: Bao Rice DPM :1945 A ge:79 Y S ex:Female Date:05/04/2024 Address:[address] [place] [address] Subjective: * Chief Complaints: * P atient presents for at-risk foot care . The patient has painful toenails that cause difficulty with ambulation and shoegear. The onset is gradual * HPI: H PI: General care P atient presents to the office for at risk foot care. Patient states that their nails are thickened, elongated and painful. Patient states that it is aggravated by shoe gear. Onset is gradual. Patient denies being diabetic., Patient denies taking prescription blood thinners but does take a daily aspirin., Date last seen by Dr. Rosales was 10/2023., Initials mca. sample. * Medical History: * Surgical History: * Hospitalization/Major Diagno stic Procedure: * Medications: U nknownaspirin 81 MG Delayed Release Oral Tablet ORAL , Notes to Pharmacist: aspirin 81 MG Delayed Release Oral TabletOriginal Medicationaspirin 81 MG Delayed Release Oral Tablet *Reorder from [employer] for eRx and Interaction Alerts*cholecalciferol 0.025 MG Chewable Tablet ORAL , Notes to Pharmacist: cholecalciferol 0.025 MG Chewable TabletOriginal Medicationcholecalciferol 0.025 MG Chewable Tablet *Reorder from [employer] for eRx and Interaction Alerts*mometasone furoate 1 MG/ML Topical Cream CUTANEOUS , Notes to Pharmacist: mometasone furoate 1 MG/ML Topical CreamOriginal Medicationmometasone furoate 1 MG/ML Topical Cream *Reorder from [employer] for eRx and Interaction Alerts*Medication List reviewed and reconciled with the patientUnknown aspirin 81 MG Delayed Release Oral Tablet ORAL , Notes to Pharmacist: aspirin 81 MG Delayed Release Oral TabletOriginal Medicationaspirin 81 MG Delayed Release Oral Tablet *Reorder from [employer] for eRx and Interaction Alerts*Unknown cholecalciferol 0.025 MG Chewable Tablet ORAL , Notes to Pharmacist: cholecalciferol 0.025 MG Chewable TabletOriginal Medicationcholecalciferol 0.025 MG Chewable Tablet *Reorder from [employer] for eRx and Interaction Alerts*Unknown mometasone furoate 1 MG/ML Topical Cream CUTANEOUS , Notes to Pharmacist: mometasone furoate 1 MG/ML Topical CreamOriginal Medicationmometasone furoate 1 MG/ML Topical Cream *Reorder from [employer] for eRx and Interaction Alerts*Medication List reviewed and reconciled with the patient Objective: * Vitals: * Examination: C onstitutional: Constitutional T he patient is awake, alert, well developed, well groomed and well nourished. D ermatologic: Skin findings: S kin is thin, atrophic and lacking pedal hair. Nail pathology: N ails 1, 2, 3, 4, and 5 bilateral are elongated, thick, discolored, and dystrophic with subungual debris. They are painful to palpation. ? V ascular: Dorsalis pedis pulse: 1 /4 b ilateral. Posterior tibial pulse: 0 /4 b ilateral. Capillary refill: g reater than 3 seconds. Edema: N o edema, bilateral. N eurologic: Gross sensation G ross sensation is intact to light touch.? M usculoskeletal: Muscle Strength M uscle strength is 5/5 in regards to dorsiflexion, plantarflexion, inversion, and eversion in bilateral lower extremities. ? Assessment: * Assessment: 1. T inea unguium - B35.1 (Primary) 2 . P ain in right toe(s) - M79.674? 3. P ain in left toe(s) - M79.675 4 . A therosclerosis of [place] arteries of extremities with intermittent claudication, bilateral legs - I70.213 Plan: * Treatment: * Procedure Codes: 1 1721 DEBRIDE NAIL, 6 OR MORE, Modifiers: Q8 * Follow Up: 1 0-12 Weeks (Reason: At Risk Foot care, sooner if problems arise) * Billing Information: * Visit Code: * Procedure Codes: 74060 DEBRIDE NAIL, 6 OR MORE. 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 Patient states that their nails are thickened, elongated and painful. Patient states that it is aggravated by shoe gear. Onset is gradual. Patient denies being diabetic., Patient denies taking prescription blood thinners but does take a daily aspirin., Date last seen by Dr. Rosales was 10/2023., Initials mca sample Examination Category Sub-Category Detail Notes Category Not es Dermatologic Skin findings: Skin is thin, at rophic and lacking pedal hair Nail pathology: Nails 1, 2, 3, 4, an d 5 bilateral are elongated, thick, discolored, and dystrophic with subungual debris. They are painful to palpation Neurologic Gross sensation Gross sensation is intact to light touch Vascular Dorsalis pedis pulse: 1/4 bilateral Edema: No edema, bilateral Capillary refill: greater than 3 secon ds Posterior tibial pulse: 0/4 bilateral Musculoskeletal Muscle Strength Muscle strength is 5/5 in regards to dorsiflexion, plantarflexion, inversion, and eversion in bilateral lower extremities Constitutional Constitutional The patient is a wake, alert, well developed, well groomed and well nourished
--- OUTSIDE RECORDS SUMMARY | 2024-07-24 13:59 | XMS_ITS | Clinical Summary ---
Author Organization [facility] Address [address] [place] [address] Care Team Providers Care Sports Lawyer Name Role Phone Apolinar Rosales MD Primary Care Provider [phone] Allergies No known active allergies Medications aspirin (ASPIR-81) 81 mg tablet take 1 Tablet by oral route every day 0 0 7 Active Additional Information Patient not taking.Reported on 08/20/2022 atorvastatin (LIPITOR) 40 mg tablet take 1 tablet by oral route every day 0 0 7 Active Additional Information Patient not taking.Reported on 08/25/2023 ferrous sulfate (IRON) 325 mg (65 mg iron) capsule, extended release take 1 by Oral route once 0 0 7 Active Additional Information Patient not taking.Reported on 08/25/2023 cholecalciferol (VITAMIN D-3) 1,000 unit Take 1 tablet/capsule (1,000 Units total) by mouth daily Active multivitamin tablet tabletIndicatio ns:Vitamin Deficiency Prevention Take 1 tablet by mouth Active montelukast (SINGULAIR) 10 mg tablet Take 1 tablet (10 mg total) by mouth daily 1 Active spironolactone- hydroCHLOROthia zide (ALDACTAZIDE) 25-25 mg per tablet Take 1 tablet by mouth daily 1 Active metoprolol XL (TOPROL-XL) 25 mg extended release tablet Take 1 tablet (25 mg total) by mouth daily 1 Active econazole 1 % cream 2 Active clotrimazole-be tamethasone (LOTRISONE) cream Apply topically 2 (two) times a day 45 g 1 2 Active Additional Information Patient not taking.Reported on 08/20/2022 Active Problems Problem Noted Date Diagnosed Date Chronic pulmonary edema 04/21/2023 Encephalopathy, unspecified 04/21/2023 Gastro-esophageal reflux disease without esophag itis 04/21/2023 Ischemic cardiomyopathy 04/21/2023 Occlusion and stenosis of unspecified carotid ar yared 04/21/2023 Severe sepsis with septic shock 04/21/2023 Tubulo-interstitial nephriti s, not specified as acute or chronic 04/21/2023 Unspecified diastolic (congestive) heart failure 04/21/2023 Hx of colonic polyps 06/17/2020 Overview (06/17/2020): Added automatically from request for surgery [id number] Coronary artery disease invo lving [place] coronary artery of [place] heart without angina pectoris 2017 Hx of CABG 2017 Continuous leakage of urine 01/01/2017 Chronic coronary artery disease 01/28/2016 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 Accelerated essential hypertension 05/24/2015 Hypoxia 05/22/2015 Yeast infection of the skin 05/08/2015 Abnormal stress test 03/01/2015 Left anterior hemiblock 03/01/2015 Abnormal ECG 02/26/2015 Colon adenomas 01/29/2015 Mixed hyperlipidemia 01/23/2015 Type 2 diabetes mellitus without complication Multiple polyps of sigmoid colon 01/16/2015 Overview (08/25/2023): Repeat in 3 years per gi Eczema 12/10/2014 Screening mammogram for high-risk patient 2014 Tinnitus 12/10/2014 Immunizations Immunization Administration Dates Next Due Influenza, Quadrivalent, Hig h Dose, Preservative Free, Intrr 01/05/2023 Influenza, Quadrivalent, Spl it, Intramuscular 12/05/2015 Influenza, Trivalent, High D ose, Split, Preservative Free, Intramuscular 12/10/2017,11/08/2016,12/10/2014 Influenza, Trivalent, IM (MDV) 12/16/2015 PPD TEST 05/01/2023,04/22/2023 Pfizer SARS-CoV-2 Monovalent Vaccination (12+ Yrs) PURPLE 01/05/2023,12/27/2021,07/12/2021,12/27,05/20/2020,05/01/2020 Pneumococcal Conjugate PCV 13 03/29/2023, 019 Pneumococcal Conjugate Pcv20 05/27/2023 Pneumococcal Polysaccharide PPV23 07/23/2017, Pneumococcal, Unspecified 12/24/2014 RSV, Bivalent, Protein Subun it Rsvpref, Diluent (Abrysvo) 04/13/2023 Tdap 10/15/2018 ZOSTER LIVE 02/15/2015 ZOSTER Recombinant 03/11/2019 Surgical History Surgery Date Site/Laterality Comments CORONARY ARTERY BYPASS GRAFT COLONOSCOPY 06/27/2016 - 07/26/2016 HYSTERECTOMY Medical History Medical History Date Comments Coronary artery disease Hyperlipidemia Asthma Social History Tobacco Use Types Packs/Day Years Used Date Smoking Tobacco: Never Smokeless Tobacco: Never Tobacco Cessation:Counseling Given: Not Answered Alcohol Use Standard Drinks/Week Comments No 0 (1 standard drink = 0.6 oz pur e alcohol) Personal Safety Answer Date Recorded Getting School Help Needed Not on file 04/19 Comments No Sex and Gender Information Value Date Recorded Sex Assigned at Not on file 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 Gender Identity Not on file Sexual Orientation Not on file Occupation Industry Job Start Date Job End Date Retired Not on file Not on file Not on file Obstetrics History Para Term AB IAB SAB Ectopic Multiple Livin g Live Births 2 2 1 1 1 Date Outcome GA Total Labor Labor/2nd/3rd Weight Sex Type Anes PTL Sayra A1 A5 Name Clin 1975 Para 4.536 kg (10 lb) M C-S j incis General N Livin g Complications:None 02/11 Term M Last Filed Vital Signs Vital Sign Reading Time Taken Comments Blood Pressure 128/88 08/25/2023 10:31 AM CDT Pulse 56 07/05/2020 1:05 PM CDT Temperature 35.6 C (96 F) 07/05/2020 1:05 PM CDT Respiratory Rate 20 07/05/2020 1:05 PM CDT Oxygen Saturation 93% 07/05/2020 1:05 PM CDT Inhaled Oxygen Concentration - - Weight 71.2 kg (157 lb) 08/25/2023 10:31 AM CDT Height 162.6 cm (5' 4 ) 08/25/2023 10:31 AM CDT Body Mass Index 26.95 08/25/2023 10:31 AM CDT Plan of Treatment Health Maintenance Due Date Last Done Comments Albumin Creatinine Ratio, Urine 1945 Depression Screening 1945 Fall Risk Assessment 1945 Hemoglobin A1C 1945 Hepatitis C Screening 1945 eGFR 1945 Dilated Eye Exam 1945 Foot Exam 1945 Lipid Panel 1945 Hepatitis B Screening 01/20/1964 Zoster Vaccine (3 of 3) 05/06/2019 03/11/2019, 02/15 Well Visit 65+ 08/21/2023 08/20/2022, 08/18/2021 Osteoporosis Screening-Bone Density Scan 08/28/2023 08/27/2021, 08/27/2021, 01/07/2015 Covid-19 Vaccine (2023-2 5 season) 2023 01/05/2023, 12/27/2021, 07/12/2021, Additional history exists Influenza Vaccine (Season Ended) 2024 01/05/2023, 12/10/2017, 11/08/2016, Additional history exists DTaP/Tdap/Td Vaccine (2 - Td or Tdap) 10/15/2028 10/15/2018 Colon Cancer Screening-CT Colonography Discontinued 07/05/2020, 07/21/2016 Colon Cancer Screening-Colonoscopy Discontinued 07/05/2020, 07/21/2016 Colon Cancer Screening-DNA Stool Discontinued 07/06/19 21, 07/21/2016 Colon Cancer Screening-FIT Discontinued 07/05/2020, Colon Cancer Screening-FOBT Discontinued 07/05/2020, 0 07/21/2016 Colon Cancer Screening-Sigmoidoscopy Discontinued 07/05/2020, 07/21/2016 Colorectal Cancer Screening Discontinued Pneumococcal vaccine 65+ Completed 024, 03/29/2023, 03/11/2019, Additional history exists Breast Cancer Screening-Mammogram Discontinued 09/03/2023, 08/31/2022, 08/27/2021, Additional history exists Procedures Procedure Name Priority Date/Time Associated Diagnosis Comments SCREENING MAMMOGRAM BILATERAL W SEAN Schedule Routine, Read Routine (OP Routine) 09/03/2023 2:00 PM CDT Encounter for screening mammogram for malignant neoplasm of breast DEXA AXIAL SKELETON BONE DENSITY 1 OR MORE SITES Schedule Routine, Read Routine (OP Routine) 08/27/2021 2:27 PM CDT Screening for osteoporosis Age-related osteoporosis without current pathological fracture COLONOSCOPY 07/05/2020 11:22 AM CDT from Last 3 Months or Most Recently Relevant to Health Maintenance Results * Screening Mammogram Bilateral W Sean (09/03/2023 2:00 PM CDT) Anatomical Region Laterality Modality Breast Bilateral Mammography 09/03/2023 3:59 PM CDT Impressions 09/03/2023 3:59 PM CDT There is no mammographic evidence of malignancy. A 1 year screening mammogram is recommended. BI-RADS: 1 - Negative. The patient has been or will be contacted. The patient will be entered into a reminder system with a target due date of 1 year for her next mammogram. Electronically signed by: Adamaris Dasilva M.D. Narrative 09/03/2023 3:59 PM CDT EXAMINATION: SCREENING MAMMOGRAM BILATERAL W SEAN ORDERING HEALTHCARE PROVIDER: ALYSSA CAR HISTORY: Routine screening mammography. COMPARISON: 08/31/2022, 08/27/2021, 08/14/2020, 04/11/2019, 08/26/2017 TECHNIQUE: CC and MLO views of the bilateral breasts were obtained with digital technique using breast tomosynthesis with C view. Computer aided detection was utilized. FINDINGS: DENSITY: There are scattered fibroglandular elements in the bilateral breasts. BREASTS: There are no suspicious masses, suspicious calcifications, or other suspicious findings in either breast. There has been no suspicious interval change. us Alyssa Car DO IMG MAMMO PROCEDURES Fi nal Result * Dexa Axial Skeleton Bone Density 1 or 2 Site (08/27/2021 2:27 PM CDT) Anatomical Region Laterality Modality Body N/A Other 08/27/2021 2:51 PM CDT Narrative 08/27/2021 2:52 PM CDT EXAM DESCRIPTION: DEXA AXIAL SKELETON BONE DENSITY 1 OR MORE SITES REASON FOR STUDY: 76 y/o year old F with given history of screening. Daycare Provider/Model: [email or web address] (S/N [id number]) CLINICAL INFORMATION: Current height: 65 inches Maximum height: 66 inches Weight: 179 pounds Risk factors: Postmenopausal COMPARISON: None available. FINDINGS: AP LUMBAR SPINE L1-L4: Total BMD is 1.072 g/cm2 T-score is 0.2 LEFT HIP: Total BMD is 0.885 g/cm2 T-score is -0.5 Femoral neck BMD is 0.731 g/cm2 T-score is -1.1 FRAX: 10 year risk for a major osteoporotic fracture is 10 %, 10 year risk for a hip fracture is 1.6 % IMPRESSION: Based on the left femoral neck bone mineral density (T-score -1.1) the patient has low bone mass. REFERENCE: Bone mineral density: Normal (T-score above or = -1.0) Low bone mass (T-score between -1.0 and -2.5) replaces the previously used term osteopenia Osteoporosis (T-score = or below -2.5) Medical evaluation for secondary causes of low bone mineral density may be appropriate. FRAX is a World Health Organization validated fracture risk assessment tool that calculates a person's 10 year probability of a major osteoporosis related fracture and hip fracture. According to the National Osteoporosis Foundation guidelines, postmenopausal women and men age 50 or older with low bone mass and a 10 year probability of a major osteoporosis related fracture = or greater than 20% or a 10 year probability of a hip fracture = or greater than 3% should be considered for treatment. For further information, including treatment recommendations, please refer to the 2013 ISCD Official Positions (http://www.iscd.org) and the NOF's Clinician's Guide to Prevention and Treatment of Osteoporosis (http://www.nof.org/professionals/clinical-guidelines) THIS IS AN ELECTRONICALLY VERIFIED FINAL REPORT 08/27/2021 2:52 PM - Electronically signed by Kel Lind M.D. MF: JEMMA Report ID: [id number] Reading Location: [place] [id number] Procedure Note Kel Lind MD - 08/27/2021 EXAM DESCRIPTION: DEXA AXIAL SKELETON BONE DENSITY 1 OR MORE SITES REASON FOR STUDY: 76 y/o year old F with given history ofscreening. Daycare Provider/Model: [employer] (S/N [id number]) CLINICAL INFORMATION: Current height: 65 inches Maximum height: 66 inches Weight: 179 pounds Risk factors: Postmenopausal COMPARISON: None available. FINDINGS: AP LUMBAR SPINE L1-L4: Total BMD is 1.072 g/cm2 T-score is 0.2 LEFT HIP: Total BMD is 0.885 g/cm2 T-score is -0.5 Femoral neck BMD is 0.731 g/cm2 T-score is -1.1 FRAX: 10 year risk for a major osteoporotic fracture is 10 %, 10 year risk for ahip fracture is 1.6 % IMPRESSION: Based on the left femoral neck bone mineral density (T-score -1.1) the patient has low bone mass. REFERENCE: Bone mineral density: Normal (T-score above or = -1.0) Low bone mass (T-score between -1.0 and -2.5) replaces thepreviously used term osteopenia Osteoporosis (T-score = or below -2.5) Medical evaluation for secondary causes of low bone mineral density may be appropriate. FRAX is a World Health Organization validated fracture risk assessmenttool that calculates a person's 10 year probability of a major osteoporosisrelated fracture and hip fracture. According to the National OsteoporosisFoundation guidelines, postmenopausal women and men age 50 or older with low bonemass and a 10 year probability of a major osteoporosis related fracture = or greater than 20% or a 10 year probability of a hip fracture = or greaterthan 3% should be considered for treatment. For further information, including treatment recommendations, please referto the 2013 ISCD Official Positions (http://www.iscd.org) and the NOF's Clinician's Guide to Prevention and Treatment of Osteoporosis (http://www.nof.org/professionals/clinical-guidelines) THIS IS AN ELECTRONICALLY VERIFIED FINAL REPORT 08/27/2021 2:52 PM - Electronically signed by Kel Lind M.D. MF: JEMMA Report ID: [id number] Reading Location: [id number] us Alyssa Libia Car DO IMG DXA PROCEDURES Delores l Result * COLONOSCOPY (07/05/2020 11:22 AM CDT) Anatomical Region Laterality Modality Other Narrative Procedure Note Alessandro Osborn MD - 07/05/2020 11:22 AM CDT [facility] Patient Name: Nicky Kuo Procedure Date: 07/05/2020 11:22 AM Date of : 1945 Admit Type: Outpatient Age: 75 Gender: Female Attending MD: Alessandro Osborn M.D. Room: [facility] ENDOSCOPY ROOM 2 Note Status: Finalized Patient Profile: Refer to note in patient chart for documentation of history and physical. Procedure: Colonoscopy Indications: High risk colon cancer surveillance: Personalhistory of colonic polyps, Last colonoscopy: June 2016 Referring MD: Apolinar Rosales M.D. Providers: Alessandro Osborn M.D. Impression: - Hemorrhoids found on perianal exam. - Diverticulosis in the sigmoid colon and in the transverse colon. - The examination was otherwise normal. - No specimens collected. Recommendation: - Discharge patient to home. - Resume previous diet. - Continue present medications. - Repeat colonoscopy in 5 years for surveillance. - Return to primary care physician as previously scheduled. Medicines: Propofol per Anesthesia Complications: No immediate complications. Estimated Blood Loss: Estimated blood loss: none. Procedure: Pre-Anesthesia Assessment: - This assessment was completed [Time ofAssessment] prior to the administration of sedation. The benefits, risks and alternatives of theprocedure and sedation were discussed and informed consentwas obtained. All questions were answered. Please referto the signed informed consent document in the medical record. Bowel prep was administered using a single dose. The bowel preparation used was Miralax via single dose instruction. The bowel preparation used was bisacodyl tablets via single dose instruction.The scope was passed under direct vision. TheColonoscope [id number] was introduced through the anus and advanced to the the cecum, identified by appendiceal orifice and ileocecal valve. The colonoscopy was performed without difficulty. The patient tolerated the procedure well. The qualityof the bowel preparation was excellent. Findings: Hemorrhoids were found on perianal exam. Multiple small and large-mouthed diverticula were found in thesigmoid colon and transverse colon. The exam was otherwise without abnormality. Electronically signed by Alessandro Osborn M.D. Alessandro Osborn M.D. 07/05/2020 12:35:12 PM Number of Addenda: 0 Note Initiated On: 07/05/2020 11:22 AM Procedure Code(s): --- Professional --- G0105, Colorectal cancer screening; colonoscopy on individual at high risk Diagnosis Code(s): --- Professional --- K57.30, Diverticulosis of large intestine without perforation orabscess without bleeding K64.9, Unspecified hemorrhoids Z86.010, Personal history of colonic polyps CPT copyright 2019 [employer]. All rights reserved. The codes documented in this report are preliminary and upon jd edwards consultant reviewmay be revised to meet current compliance requirements. Recognized by the [place] [employer] for promoting quality in endoscopy Alessandro Osborn MD ENDOSCOPY PROCEDURES Final Re sult from Last 3 Months or Most Recently Relevant to Health Maintenance Insurance MEDICARE [employer] [facility] MEDICARE FOR LIFE MEDICARE FOR LIFE Advance Directives For more information, please contact: [phone] * Full Code (Latest Code Status on File) Date Activated Date Inactivated Comments 07/05/2020 11:47 AM 07/05/2020 5:53 PM Care Teams Sports Lawyer Relationship Specialty Start Date End Date Apolinar Rosales MD PCP - General 06/26/16
--- OUTSIDE RECORDS SUMMARY | 2024-07-24 13:59 | XMS_ITS | Referral Summary ---
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 COMPARISON: 08/31/2022, [...] has been no suspicious interval change. us Herlinda Car DO IMG MAMMO PROCEDURES Fi nal Result * Dexa Axial Skeleton Bone Density 1 or 2 Site (08/27/2021 2:27 PM CDT) Anatomical Region Laterality Modality Body N/A Other 08/27/2021 2:51 PM CDT Narrative 08/27/2021 2:52 PM CDT EXAM DESCRIPTION: DEXA AXIAL SKELETON BONE DENSITY 1 OR MORE SITES REASON FOR STUDY: 76 y/o year old F with given history of screening. Upper Marker/Model: [employer] (S/N [id number]) CLINICAL INFORMATION: Current height: 65 inches Maximum [...] Kel Lind M.D. MF: JEMMA Report ID: [id number] Reading Location: [id number] Procedure Note Kel Lind MD - 08/27/2021 EXAM DESCRIPTION: DEXA AXIAL SKELETON BONE DENSITY 1 OR MORE SITES REASON FOR STUDY: 76 y/o year old F with given history ofscreening. Upper Marker/Model: [employer] (S/N [id number]) CLINICAL INFORMATION: Current height: 65 inches Maximum [...] Kel Lind M.D. MF: JEMMA Report ID: [id number] Reading Location: [id number] us Herlinda Car DO [facility]ED[place] Delores l Result * COLONOSCOPY (07/05/2020 11:22 AM CDT) Anatomical Region Laterality Modality Other Narrative Procedure Note Alessandro Osborn MD - 07/05/2020 11:22 AM CDT [facility] [[email or web address] Patient Name: Nicky Kuo Procedure Date: 07/05/2020 11:22 AM Date of : 1945 Admit Type: Outpatient Age: 75 Gender: Female Attending MD: Alessandro Osborn M.D. Room: [facility] ENDOSCOPY ROOM 2 Note Status: Finalized Patient [...] scope was passed under direct vision. TheColonoscope [id number] was introduced through the anus and advanced [...] history of colonic polyps CPT copyright 2019 [employer]. All rights reserved. The codes documented in this report are preliminary and upon surgical coder reviewmay be revised to meet current compliance requirements. Recognized by the [employer] for promoting quality in endoscopy Alessandro Osborn MD ENDOSCOPY PROCEDURES Final Re sult from Last 3 Months or Most Recently Relevant to Health Maintenance Insurance MEDICARE XDx MEDICARE FOR LIFE MEDICARE FOR LIFE Advance Directives For more information, please contact: [phone] * Full Code (Latest Code Status on File) Date Activated Date Inactivated Comments 07/05/2020 11:47 AM 07/05/2020 5:53 PM Care Teams Underwear Welter Relationship Specialty Start Date End Date Apolinar Rosales MD [facility] - General 06/26/16
--- OUTSIDE RECORDS SUMMARY | 2024-07-24 14:00 | XMS_ITS ---
Author Organization [facility] Address [address] [place], [place] [id number] Care Team Providers Care Spinning Operator Name Role Phone ARCELIA WILCOX Unavailable [phone] Apolinar Rosales Unavailable Unavailable REASON FOR VISIT *General care Encounters Encounter Location Date Provider Diagnosis [address] [id number] 07/13/2024 ARCELIA WILCOX Plan Of Treatment No Information Progress Notes * CHITRAEL KDOB:[birth year] (79 yo F)Acc No.[id number]:07/13/2024 Patient: EL DELEON Provider: Eron WILCOX :1945 A ge:79 Y S ex:Female Date:07/13/2024 Address:[address] [place], [place] [id number] Subjective: * Chief Complaints: * 1 . *General care. * Medical History: Objective: * Vitals: Assessment: Plan: * Treatment: * Billing Information: * Visit Code: * Procedure Codes: * Electronic signature of ROBB WILCOX DPM on 07/24/2024 at 01:59 PM CDT Sign off status: Pending * Provider: Eron WILCOX Date: 0 07/13/2024 Generated for [employer]/Faronnie/eTransmitting on: 0 07/24/2024 01:59 PM CDT
--- OUTSIDE RECORDS SUMMARY | 2024-07-24 14:00 | XMS_ITS | Patient Health Record ---
Author Organization [facility] Address [address] [place], [place] [id number] Care Team Providers Care Jewelry Sorter Name Role Phone ARCELIA WILCOX Unavailable [phone] Apolinar Rosales Unavailable Unavailable KATHLEEN JOYCE Unavailable [phone] VADIM BEAN Unavailable [phone] Allergies No Known Allergies Reason For Referral No Information Medications Medication SIG (Take, Route, Frequency, Duration) Notes Start Date End Date Status mometasone furoate 1 MG/ML Topical Cream CUTANEOUS mometasone furoate 1 MG/ML Topical CreamOriginal Medicationmometasone furoate 1 MG/ML Topical Cream *Reorder from [facility] for eRx and Interaction Alerts* 08/12/19 17 Unknown cholecalciferol 0.025 MG Chewable Tablet ORAL cholecalciferol 0.025 MG Chewable TabletOriginal Medicationcholecalciferol 0.025 MG Chewable Tablet *Reorder from [facility] for eRx and Interaction Alerts* 08/12/19 17 Unknown aspirin 81 MG Delayed Release Oral Tablet ORAL aspirin 81 MG Delayed Releas e Oral TabletOriginal Medicationaspirin 81 MG Delayed Release Oral Tablet *Reorder from [facility] for eRx and Interaction Alerts* 08/12/19 17 Unknown Immunizations Vaccine Route Administration Date Status Comme nts Influenza, high dose seasonal Unknown 12/24/2022 Admini stered Vital Signs Height-cm 167.64 cm 10/21/2023 Weight-kg 88.45 kg 10/21/2023 Height 66 in 10/21/2023 Weight 195 lbs 10/21/2023 BMI 31.47 kg/m2 10/21/2023 Encounters Encounter Location Date Provider Diagnosis [address] [id number] 08/12/2023 VADIM BEAN Other hammer toe(s) (acquired), right foot M20.41 ; Tinea unguium B35.1 ; Other hammer toe(s) (acquired), left foot M20.42 ; Pain in right toe(s) M79.674 ; Pain in left toe(s) M79.675 and 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, bilateral legs I70.[address] [id number] 10/21/2023 VADIM BEAN Other hammer toe(s) (acquired), right foot M20.41 ; Tinea unguium B35.1 ; Other hammer toe(s) (acquired), left foot M20.42 ; Pain in right toe(s) M79.674 ; Pain in left toe(s) M79.675 and 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, bilateral legs I70.[address] [id number] 12/23/2023 VADIM BEAN Other hammer toe(s) (acquired), right foot M20.41 ; Tinea unguium B35.1 ; Other hammer toe(s) (acquired), left foot M20.42 ; Pain in right toe(s) M79.674 ; Pain in left toe(s) M79.675 and 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, bilateral legs I70.[address] [id number] 03/02/2024 VADIM BEAN Other hammer toe(s) (acquired), right foot M20.41 ; Tinea unguium B35.1 ; Other hammer toe(s) (acquired), left foot M20.42 ; Pain in right toe(s) M79.674 ; Pain in left toe(s) M79.675 and 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 The patient was educated regarding all treatment options that include topical and oral antifungal treatments. I discussed the options of taking a sample of the nail to confirm diagnosis. Nail clippings were not sent for pathology analysis. The patient was educated why and how the fungal infection evolved in their feet and the patient was given information regarding how to prevent further infection. The patient was told to keep feet dry and change socks. The patient was told to be careful with old shoes and excessive sweating. The patient was educated regarding both OTC and prescription treatments. 08/12/2023 Other hammer toe(s) (acquired), right foot (ICD-10 - M20.41) The patient was educated regarding how to mechanically stabilize their deformity. The patient was given education about shoe recommendations specific for the condition. The patient was educated about custom orthotics and how appropriate shoes and orthotics can prevent further worsening of the deformity. The patient was educated about how bad shoe habits can worsen the condition. NSAIDS, P.T., injections and other conservative treatments were discussed. Both surgical and non surgical treatments were discussed, but conservative options were emphasized. 10/21/2023 Other hammer toe(s) (acquired), right foot (ICD-10 - M20.41) The patient was educated regarding how to mechanically stabilize their deformity. The patient was given education about shoe recommendations specific for the condition. The patient was educated about custom orthotics and how appropriate shoes and orthotics can prevent further worsening of the deformity. The patient was educated about how bad shoe habits can worsen the condition. NSAIDS, P.T., injections and other conservative treatments were discussed. Both surgical and non surgical treatments were discussed, but conservative options were emphasized. 10/21/2023 Tinea unguium (ICD-10 - B35.1) Aseptic debridement of elongated thickened nails x 10 using sterile nippers, nails were debrided in length and thickness by 30% utilizing a nail nipper without incident. The patient was educated regarding all treatment options that include topical and oral antifungal treatments. I discussed the options of taking a sample of the nail to confirm diagnosis. Nail clippings were not sent for pathology analysis. The patient was educated why and how the fungal infection evolved in their feet and the patient was given information regarding how to prevent further infection. The patient was told to keep feet dry and change socks. The patient was told to be careful with old shoes and excessive sweating. The patient was educated regarding both OTC and prescription treatments. 12/23/2023 Tinea unguium (ICD-10 - B35.1) Aseptic debridement of elongated thickened nails x 10 using sterile nippers, nails were debrided in length and thickness by 30% utilizing a nail nipper without incident. The patient was educated regarding all treatment options that include topical and oral antifungal treatments. I discussed the options of taking a sample of the nail to confirm diagnosis. Nail clippings were not sent for pathology analysis. The patient was educated why and how the fungal infection evolved in their feet and the patient was given information regarding how to prevent further infection. The patient was told to keep feet dry and change socks. The patient was told to be careful with old shoes and excessive sweating. The patient was educated regarding both OTC and prescription treatments. 12/23/2023 Other hammer toe(s) (acquired), right foot (ICD-10 - M20.41) The patient was educated regarding how to mechanically stabilize their deformity. The patient was given education about shoe recommendations specific for the condition. The patient was educated about custom orthotics and how appropriate shoes and orthotics can prevent further worsening of the deformity. The patient was educated about how bad shoe habits can worsen the condition. NSAIDS, P.T., injections and other conservative treatments were discussed. Both surgical and non surgical treatments were discussed, but conservative options were emphasized. 03/02/2024 Other hammer toe(s) (acquired), right foot (ICD-10 - M20.41) The patient was educated regarding how to mechanically stabilize their deformity. The patient was given education about shoe recommendations specific for the condition. The patient was educated about custom orthotics and how appropriate shoes and orthotics can prevent further worsening of the deformity. The patient was educated about how bad shoe habits can worsen the condition. NSAIDS, P.T., injections and other conservative treatments were discussed. Both surgical and non surgical treatments were discussed, but conservative options were emphasized. 03/02/2024 Tinea unguium (ICD-10 - B35.1) Aseptic debridement of elongated thickened nails x 10 using sterile nippers, nails were debrided in length and thickness by 30% utilizing a nail nipper without incident. The patient was educated regarding all treatment options that include topical and oral antifungal treatments. I discussed the options of taking a sample of the nail to confirm diagnosis. Nail clippings were not sent for pathology analysis. The patient was educated why and how the fungal infection evolved in their feet and the patient was given information regarding how to prevent further infection. The patient was told to keep feet dry and change socks. The patient was told to be careful with old shoes and excessive sweating. The patient was educated regarding both OTC and prescription treatments. 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, bilateral legs (ICD-10 - I70.213) 03/02/2024 Pain in left toe(s) (ICD-10 - M79.675) 12/23/2023 Pain in left toe(s) (ICD-10 - M79.675) 10/21/2023 Pain in left toe(s) (ICD-10 - M79.675) 08/12/2023 Pain in left toe(s) (ICD-10 - M79.675) 08/12/2023 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, bilateral legs (ICD-10 - I70.203) Patient educated on risks and aggravating factors of PVD, including conservative treatment options such as a diet and exercise regimen to aid in slowing progression of vascular disease 12/23/2023 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, bilateral legs (ICD-10 - I70.203) Patient educated on risks and aggravating factors of PVD, including conservative treatment options such as a diet and exercise regimen to aid in slowing progression of vascular disease 10/21/2023 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, bilateral legs (ICD-10 - I70.203) Patient educated on risks and aggravating factors of PVD, including conservative treatment options such as a diet and exercise regimen to aid in slowing progression of vascular disease 03/02/2024 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 [place], [place] [id number] EL BUENROSTRO Self - patient is the insured
== END 2024-07-24 12:18 | disposition home or self-care (01) ==
PROVIDERS: PCP Internal Medicine; Visit Provider Internal Medicine Cardiovascular Disease
DX: I65.23 Occlusion and stenosis of bilateral carotid arteries (principal)
CPT/HCPCS: 93880